=== PATIENT | male | born 1940 | race African-American/Black ===

== ENCOUNTER 2017-01-17 08:07 | Inpatient (IN) | payer MEDICARE, MEDICAID ==
[~2017-01-17] VITALS: Ht 193 cm; Wt 77.1 kg
[~2017-01-17 08:07] MED LIST: ADVAIR 250-501 EACH INH; ALBUTEROL2.5 MG/3 M INH; DALIRESP500 MCG PO; OPSUMIT10 MG PO; PROAIR HFA8.5 GM INH; SPIRIVA18 MCG INH
[2017-01-17] MEDS ORDERED: Ipratropium 0.02% Inh Soln 2.5ml UD HHN ONE (08:15)
[2017-01-17] MEDS ORDERED: Solu-MEDROL 125mg Inj IVP ONE (08:15)
[2017-01-17 08:20] VITALS: BP 146/80
[2017-01-17] MEDS ORDERED: LEVOFLOXACIN500 MG ORAL (08:21)
[2017-01-17] MEDS ORDERED: PREDNISONE10 MG ORAL (08:21)
[2017-01-17] MEDS ORDERED: INCRUSE ELLI62.5 MCG IH (08:21)
[2017-01-17] MEDS ORDERED: OPSUMIT10 MG PO (08:21)
--- NOTE | 2017-01-17 08:21 | Emergency Room Report ---
History of Present Illness General Chief Complaint: Dyspnea/Respdistress Source: Patient, Medical Record Present Illness HPI Patient presents with cough and shortness of breath. He states is been worsening over the last few days. When he coughs he gets very hot and flushed a. He has a nebulizer at home. He thinks he is taking prednisone but is not sure. He is on home oxygen. The last time he was admitted was a year and half ago. He gets extremely winded with minimal exertion at this time. He states he does not have chest pain but feels pressure in his chest. He states the phlegm has been clear. He denies nausea, vomiting, diarrhea, dysuria, joint pain. Allergies: Coded Allergies: No Known Allergies (Unverified , 08/26/13) Patient History Past Medical History: see triage record Social History: Reports: smoking - prior Social History Narrative at home Reviewed Nursing Documentation: PMH: Agreed, PSxH: Agreed Nursing Documentation-PMH Past Medical History: No History, Except For Hx Cardiac Problems: Yes Hx Hypertension: Yes Hx Asthma: Yes Hx COPD: Yes Hx Diabetes: No Hx Cancer: No Hx Gastrointestinal Problems: No Hx Neurological Problems: No Review of Systems All Other Systems: negative except mentioned in HPI Physical Exam Vital Signs Date Time Temp Pulse Resp B/P Pulse Ox O2 Delivery O2 Flow Rate FiO2 01/17/17 08:13 97.9 97 20 166/88 94 Nasal Cannula 2.0 Sp02 EP Interpretation: reviewed, abnormal - low on O2 as interpreted by me General Appearance: well appearing, no apparent distress, GCS 15 Head: normocephalic Eyes: bilateral eye PERRL, bilateral eye other - arcus ENT: moist mucus membranes Neck: supple Respiratory: decreased breath sounds, accessory muscle use, wheezing, expiration, inspiration Cardiovascular #1: regular rate, rhythm Cardiovascular #2: 2+ radial (R) Gastrointestinal: normal inspection, normal bowel sounds, non tender, no mass, non-distended, scaphoid Musculoskeletal: back normal, gait/station normal, normal range of motion Neurologic: alert, oriented x3, grossly normal Psychiatric: mood/affect normal Skin: normal inspection, warm/dry Medical Decision Making Diagnostic Impression: Primary Impression: COPD exacerbation Additional Impression: Lactic acid acidosis ER Course The patient presents with dyspnea with history of COPD on home oxygen. Differential includes exacerbation of COPD, pneumonia, bronchitis or pneumothorax possibly cardiac origin. Evaluation will be with EKG, chest x-ray and labs. The patient will be treated with IV Solu-Medrol and breathing treatments. The patient is significantly dyspneic at this time and most likely will need to be hospitalized. He has very little reserve. Due to normal WBC, antibiotics not started (initially). Increased infiltrate ( chronic changes RUL). Due to rising lactic acid, antibiotics begun. Patient improved. Admit med Dr. Berrios. Laboratory Tests Test 01/17/17 08:15 01/17/17 13:30 01/17/17 16:02 White Blood Count 4.7 K/UL (4.8-10.8) L Red Blood Count 4.76 M/UL (4.70-6.10) Hemoglobin 14.1 G/DL (14.2-18.0) L Hematocrit 44.6 % (42.0-52.0) Mean Corpuscular Volume 94 FL (80-99) Mean Corpuscular Hemoglobin 29.6 PG (27.0-31.0) Mean Corpuscular Hemoglobin Concent 31.7 G/DL (32.0-36.0) L Red Cell Distribution Width 14.3 % (11.6-14.8) Platelet Count 216 K/UL (150-450) Mean Platelet Volume 5.6 FL (6.5-10.1) L Neutrophils (%) (Auto) 71.3 % (45.0-75.0) Lymphocytes (%) (Auto) 16.8 % (20.0-45.0) L Monocytes (%) (Auto) 11.6 % (1.0-10.0) H Eosinophils (%) (Auto) 0.0 % (0.0-3.0) Basophils (%) (Auto) 0.2 % (0.0-2.0) Prothrombin Time 10.3 SEC (9.30-11.50) Prothrombin Time INR 1.0 (0.9-1.1) PTT 27 SEC (23-33) Sodium Level 140 mEQ/L (135-145) Potassium Level 3.9 mEQ/L (3.4-4.9) Chloride Level 94 mEQ/L (98-107) L Carbon Dioxide Level 39 mEQ/L (20-30) H Anion Gap 7 (5-15) Blood Urea Nitrogen 11 mg/dL (7-23) Creatinine 1.0 mg/dL (0.7-1.2) Estimate Glomerular Filtration Rate mL/min (>60) Glucose Level 109 mg/dL (74-106) H Lactic Acid Level 2.60 mmol/L (0.66-2.22) H 4.60 mmol/L (0.66-2.22) H Calcium Level 10.2 mg/dL (8.6-10.2) Total Bilirubin 0.3 mg/dL (0.0-1.2) Aspartate Amino Transferase (AST) 24 U/L (5-40) Alanine Aminotransferase (ALT) 16 U/L (3-41) Alkaline Phosphatase 55 U/L (40-129) Total Creatine Kinase 175 U/L (38-174) H Troponin I < 0.30 ng/mL (<=0.30) Pro-B-Type Natriuretic Peptide 139 pg/mL (0-450) Total Protein 8.0 g/dL (6.6-8.7) Albumin 4.5 g/dL (3.5-5.2) Globulin 3.5 g/dL Albumin/Globulin Ratio 1.2 (1.0-2.7) Arterial Blood pH 7.362 (7.350-7.450) Arterial Blood Partial Pressure CO2 52.9 mmHg (35.0-45.0) H Arterial Blood Partial Pressure O2 86.9 mmHg (75.0-100.0) Arterial Blood HCO3 29.3 mmol/L (22.0-26.0) H Arterial Blood Oxygen Saturation 95.9 % (92.0-98.0) Arterial Blood Base Excess 2.9 Gilbert Test Positive EKG Diagnostic Results Rate: normal Rhythm: NSR ST Segments: no acute changes - P pulmonale Rhythm Strip Diag. Results EP Interpretation: yes Rhythm: NSR, no PVC's, no ectopy Chest X-Ray Diagnostic Results Chest X-Ray Diagnostic Results : Chest X-Ray Ordered: Yes # of Views/Limited/Complete: 1 View Indication: Shortness of Breath EP Interpretation: Yes Interpretation: no pneumothorax, other - COPD, bullae, scarring and consolidation R upper lung Last Vital Signs Date Time Temp Pulse Resp B/P Pulse Ox O2 Delivery O2 Flow Rate FiO2 01/17/17 19:40 96 20 96 Nasal Cannula 2.0 28 01/17/17 17:15 98.1 154/77 Status: improved Disposition: ADMITTED INPATIENT Condition: Serious Pedro Resendiz M.D. Jan 17, 2017 08:21
[2017-01-17] MEDS: Albuterol ud Inhalation HHN SCH ×5 (08:27→20:42)
[2017-01-17 08:39] LABS: BASOPHILS % (AUTO) 0.2 % (0.0-2.0); LYMPHOCYTES % (AUTO) 16.8 % (20.0-45.0); MEAN CORPUSCULAR HEMOGLOBIN 29.6 PG (27.0-31.0); MEAN CORPUSCULAR HGB CONC 31.7 G/DL (32.0-36.0); MEAN CORPUSCULAR VOLUME 94 FL (80-99); MEAN PLATELET VOLUME 5.6 FL (6.5-10.1); MONOCYTES % (AUTO) 11.6 % (1.0-10.0); NEUTROPHILS % (AUTO) 71.3 % (45.0-75.0); PLATELET COUNT 216 K/UL (150-450); RED BLOOD COUNT 4.76 M/UL (4.70-6.10); RED CELL DISTRIBUTION WIDTH 14.3 % (11.6-14.8); WHITE BLOOD COUNT 4.7 K/UL (4.8-10.8)
[2017-01-17 08:56] LABS: PROTHROMBIN TIME 10.3 SEC (9.30-11.50)
[2017-01-17 08:57] LABS: ALANINE AMINOTRANSFERASE 16 U/L (3-41); ALBUMIN/GLOBULIN RATIO 1.2 (1.0-2.7); ANION GAP 7 (5-15); ASPARTATE AMINO TRANSFERASE 24 U/L (5-40); CALCIUM 10.2 mg/dL (8.6-10.2); CARBON DIOXIDE 39 mEQ/L (20-30); CHLORIDE 94 mEQ/L (98-107); HEMOLYSIS 2; POTASSIUM 3.9 mEQ/L (3.4-4.9); SODIUM 140 mEQ/L (135-145); TROPONIN I < 0.30 ng/mL (<=0.30)
[2017-01-17 09:01] LABS: REFLEX LACTIC ACID YES OR NO YES
[2017-01-17 10:00] VITALS: BP 126/74
[2017-01-17 12:00] VITALS: BP 122/59
--- NOTE | 2017-01-17 12:31 | Diagnostic Imaging Report ---
Indication: COUGH/shortness of breath Technique: One view of the chest Comparison: 08/28/2015 Findings: Calcific scarring, volume loss, and bullous change are again demonstrated in the right lung apex. The lungs remain hyperinflated. No acute infiltrates, effusions, or congestion. Granulomatous hilar node calcifications are seen in the right lung apex. The heart size is normal. Aorta is tortuous. Impression: COPD changes, chronic right apical pleural and parenchymal scarring, as described, unchanged from 08/28/2015. No acute process
[2017-01-17 13:56] VITALS: BP 100/65
[2017-01-17] MEDS ORDERED: Zosyn 3.375gm inj ONE (14:08)
[2017-01-17] MEDS ORDERED: Piperacillin/Tazobactam 3.375 GM in NS 110 ML IVPB ONE (14:15)
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
[2017-01-17 16:00] VITALS: BP 118/72
[2017-01-17 16:32] LABS: ABG PCO2 52.9 mmHg (35.0-45.0)
[2017-01-17 16:33] LABS: ABG ALLEN TEST POSITIVE; ABG BASE EXCESS 2.9
[2017-01-17 17:15] VITALS: BP 154/77
[2017-01-17] MEDS: cefTRIAXone 1 GM in D5W 55 ML IV SCH (18:52)
[2017-01-17] MEDS ORDERED: Milk of Magnesia 30ml Ud ORAL PRN (21:00)
[2017-01-17] MEDS: Heparin 5000 units/ml inj SUBQ SCH (21:17)
[2017-01-17] MEDS ORDERED: cefTRIAXone 1 GM in D5W 55 ML IVPB ONE (22:00)
[2017-01-18] VITALS (8 sets, daily range): BP systolic 140–164; BP diastolic 80–94
[2017-01-18] MEDS: Albuterol ud Inhalation HHN SCH ×7 (00:24→22:41)
[2017-01-18] MEDS: Advair 250/50 Inhaler - 14 dose INH SCH ×3 (00:26→22:59)
[2017-01-18] MEDS: Solu-MEDROL 125mg Inj IVP SCH ×5 (01:29→23:57)
--- NOTE | 2017-01-18 07:56 | Pulmonology Progress Note ---
Assessment/Plan Assessment/Plan Assessment Pulmonary congestion COPD with acute exacerbation Respiratory insufficiency shortness of breath Pulmonary hypertension Hypoxemia Plan IV steroids as is IV antibiotics as is IV hydration respiratory care monitor ABG for CO2 retention supportive care maintain home meds oxygen therapy prognosis guarded Subjective Allergies: Coded Allergies: No Known Allergies (Unverified , 08/26/13) Subjective slightly better care noted NAD Objective Last 24 Hour Vital Signs Date Time Temp Pulse Resp B/P Pulse Ox O2 Delivery O2 Flow Rate FiO2 01/18/17 07:28 84 16 99 Nasal Cannula 2.0 01/18/17 07:17 99 Nasal Cannula 2.0 01/18/17 07:17 Nasal Cannula 2.0 01/18/17 07:17 82 15 99 Nasal Cannula 2.0 01/18/17 07:17 82 15 Nasal Cannula 2.0 01/18/17 04:15 97.8 87 20 142/87 97 Nasal Cannula 2.0 01/18/17 04:00 80 01/18/17 04:00 97.6 87 20 142/87 97 Nasal Cannula 2.0 01/18/17 03:45 94 20 96 Nasal Cannula 2.0 01/18/17 03:30 91 20 93 Nasal Cannula 2.0 01/18/17 00:00 97.2 78 20 145/92 94 Nasal Cannula 2.0 01/18/17 00:00 80 01/17/17 23:30 90 20 95 Nasal Cannula 2.0 01/17/17 23:30 95 20 97 Nasal Cannula 2.0 01/17/17 20:00 91 01/17/17 19:40 96 20 96 Nasal Cannula 2.0 01/17/17 19:30 Nasal Cannula 2.0 01/17/17 19:30 92 20 94 Nasal Cannula 2.0 01/17/17 19:30 92 20 Nasal Cannula 2.0 01/17/17 19:30 94 Nasal Cannula 2.0 01/17/17 17:43 90 18 100 Nasal Cannula 2.0 01/17/17 17:33 95 18 100 Nasal Cannula 2.0 01/17/17 17:15 98.1 90 20 154/77 92 Nasal Cannula 2.0 01/17/17 16:47 97.9 80 20 118/72 100 Nasal Cannula 2.0 82 01/17/17 16:00 80 20 118/72 100 Nasal Cannula 2.0 82 01/17/17 13:56 80 22 100/65 100 Nasal Cannula 2.0 80 01/17/17 12:00 84 20 122/59 100 Nasal Cannula 2.0 01/17/17 10:00 91 18 126/74 96 Nasal Cannula 2.0 01/17/17 09:20 93 14 100 Nasal Cannula 2.0 01/17/17 09:02 93 17 95 Nasal Cannula 2.0 01/17/17 08:27 93 21 95 Nasal Cannula 2.0 01/17/17 08:20 93 24 146/80 94 Nasal Cannula 2.0 01/17/17 08:13 97.9 97 20 166/88 94 Nasal Cannula 2.0 01/17/17 08:10 93 26 Nasal Cannula 2.0 Intake and Output 01/17/17 01/18/17 19:00 07:00 Intake Total 1810 ml 1100 ml Balance 1810 ml 1100 ml Intake Oral 0 ml IV Total 1810 ml 1100 ml # Voids 1 Objective WDWN NAD reduced breath sounds bilaterally without rhonchi or wheeze [id number] without MRG NABS nontender no HSM no CCE nonfocal Laboratory Tests 01/17/17 08:15: White Blood Count 4.7L, Red Blood Count 4.76, Hemoglobin 14.1L, Hematocrit 44.6 , Mean Corpuscular Volume 94, Mean Corpuscular Hemoglobin 29.6, Mean Corpuscular Hemoglobin Concent 31.7L, Red Cell Distribution Width 14.3, Platelet Count 216, Mean Platelet Volume 5.6L, Neutrophils (%) (Auto) 71.3, Lymphocytes (%) (Auto) 16.8L, Monocytes (%) (Auto) 11.6H, Eosinophils (%) (Auto ) 0.0, Basophils (%) (Auto) 0.2, Prothrombin Time 10.3, Prothromb Time International Ratio 1.0, Activated Partial Thromboplast Time 27, Sodium Level 140, Potassium Level 3.9, Chloride Level 94L, Carbon Dioxide Level 39H, Anion Gap 7, Blood Urea Nitrogen 11, Creatinine 1.0, Estimat Glomerular Filtration Rate , Glucose Level 109H, Lactic Acid Level 2.60H, Calcium Level 10.2, Total Bilirubin 0.3, Aspartate Amino Transf (AST/SGOT) 24, Alanine Aminotransferase ( ALT/SGPT) 16, Alkaline Phosphatase 55, Total Creatine Kinase 175H, Troponin I < 0.30, Pro-B-Type Natriuretic Peptide 139, Total Protein 8.0, Albumin 4.5, Globulin 3.5, Albumin/Globulin Ratio 1.2 01/17/17 13:30: Lactic Acid Level 4.60H 01/17/17 16:02: Arterial Blood pH 7.362, Arterial Blood Partial Pressure CO2 52.9H, Arterial Blood Partial Pressure O2 86.9, Arterial Blood HCO3 29.3H, Arterial Blood Oxygen Saturation 95.9, Arterial Blood Base Excess 2.9, Gilbert Test Positive Current Medications Medications (Trade) Dose Ordered Sig/Viji Route PRN Reason Start Time Stop Time Status Last Admin Dose Admin Acetaminophen (Tylenol) 650 mg Q4H PRN ORAL T>100.5 01/17/17 16:15 02/16/17 16:14 Albuterol Sulfate 2.5 mg 2.5 mg Q4HRT HHN 01/17/17 19:00 01/22/17 18:59 01/18/17 07:17 Ceftriaxone Sodium/Dextrose (Rocephin/D5W) 55 ml @ 110 mls/hr Q24H IV 01/17/17 18:00 01/24/17 17:59 01/17/17 18:52 Heparin Sodium (Porcine) (Heparin 5000 units/ml) 5,000 units EVERY 12 HOURS SUBQ 01/17/17 21:00 02/16/17 20:59 01/17/17 21:17 Levofloxacin (Levaquin) 500 mg Q24H ORAL 01/18/17 15:00 01/25/17 14:59 Magnesium Hydroxide (Mom) 30 ml HSPRN PRN ORAL Constipation 01/17/17 21:00 02/16/17 20:59 Methylprednisolone Sodium Succinate 60 mg 60 mg EVERY 6 HOURS IVP 01/18/17 00:00 02/17/17 00:00 01/18/17 05:02 Pantoprazole (Protonix) 40 mg DAILY ORAL 01/18/17 09:00 02/17/17 08:59 Salmeterol Xinafoate/ Fluticasone (Advair 250/50 Diskus) 1 puffs EVERY 12 HOURS INH 01/17/17 21:00 02/16/17 20:59 01/18/17 00:26 Sodium Chloride (Sodium Chloride 1000ml bag) 1,000 ml @ 100 mls/hr Q10H IV 01/17/17 20:45 02/16/17 20:44 01/18/17 05:02 Tiotropium [place] (Spiriva Inhaler) 1 puff DAILY INH 01/18/17 09:00 02/17/17 08:59 JORDYN MCARTHUR Jan 18, 2017 07:56
[2017-01-18] MEDS: Heparin 5000 units/ml inj SUBQ SCH ×2 (09:18→20:25)
--- NOTE | 2017-01-18 10:46 | History and Physical Report ---
DATE OF ADMISSION: 01/17/2017 CHIEF COMPLAINT: COPD exacerbation. HISTORY OF PRESENT ILLNESS: The patient is a very pleasant 76-year-old male well known to me, has prior history of COPD and respiratory insufficiency presented with complaints of one week progressive shortness of breath. According to the patient, he was well until a week prior to admission when he developed progressive shortness of breath, cough, and congestion. He used his inhalers as well as his oxygen, but medications at home. He had continued worsening shortness of breath and difficulty breathing. He has now been directly admitted for further evaluation and care. He denies any medication noncompliance. He has had no fevers or chills. Denies any chest pain. PAST MEDICAL HISTORY: As above. PAST SURGICAL HISTORY: None. CURRENT MEDICATIONS: Reconciled and reviewed. ALLERGIES: None. FAMILY HISTORY: None. SOCIAL HISTORY: Negative for tobacco, ethanol, or drugs. REVIEW OF SYSTEMS: General: No fever or chills. HEENT: No headaches or visual changes. Cardiopulmonary: No chest pain. Positive for shortness of breath. Gastrointestinal: No nausea or vomiting. Genitourinary: No urgency or frequency. Musculoskeletal: No joint pain or swelling. Neurologic: No evidence of seizures. PHYSICAL EXAMINATION: VITAL SIGNS: Temperature 97.2, pulse 78, respirations 20, and blood pressure 145/92. GENERAL: The patient is a well-developed male, in no apparent distress. HEART: Regular rate and rhythm. LUNGS: Diminished breath sounds. Scattered wheezes. ABDOMEN: Soft, nontender, and nondistended. EXTREMITIES: Without clubbing, cyanosis, or edema. LABORATORY DATA: White count was 5, hemoglobin 14, hematocrit 44, and platelets of 216,000. Sodium 140 and potassium 3.9. Lactic acid was 4.6. Coagulations were normal. Chest x-ray shows chronic COPD changes but no infiltrates. ASSESSMENT: This is an unfortunate elderly male with complaints of: 1. Chronic obstructive pulmonary disease exacerbation. 2. Respiratory insufficiency. 3. Bronchitis. PLAN: Continue antibiotic therapy. Respiratory treatments [id number]. Intravenous steroids, DVT, and stress ulcer prophylaxis. Pulmonary consultation has been obtained. Robert Durham M.D. DR: PEDRO JOB#: [id number] CC:
[2017-01-18] MEDS: Levofloxacin 500mg tab ORAL SCH (16:13)
[2017-01-18] MEDS: cefTRIAXone 1 GM in D5W 55 ML IV SCH (18:18)
[2017-01-19] MEDS: Albuterol ud Inhalation HHN SCH ×6 (03:24→23:46)
[2017-01-19 03:48] VITALS: BP 146/80
[2017-01-19] MEDS: Solu-MEDROL 125mg Inj IVP SCH ×4 (05:33→23:45)
[2017-01-19 07:57] VITALS: BP_SYST 109; BP_SYST 142; BP_DIAS 66; BP_DIAS 78
[2017-01-19] MEDS: Advair 250/50 Inhaler - 14 dose INH SCH ×2 (08:43→21:47)
[2017-01-19] MEDS: Heparin 5000 units/ml inj SUBQ SCH ×2 (08:44→21:05)
--- NOTE | 2017-01-19 09:02 | General Progress Note ---
Assessment/Plan Problem List: (1) Hypercapnia (2) Respiratory distress (3) Hypoxia ICD Codes: R09.02 - Hypoxia SNOMED: 321632676 (4) COPD exacerbation ICD Codes: J44.1 - Obstructive chronic bronchitis with exacerbation SNOMED: 535296524 (5) Lactic acid acidosis ICD Codes: E87.2 - Acidosis SNOMED: 64692782 Status: stable, progressing Assessment/Plan add mucinex steroids resp rx iv abx repeat lactic acid level dvt/stress ulcer prophylaxis Subjective ROS Limited/Unobtainable: No Constitutional: Reports: malaise, weakness HEENT: Reports: no symptoms Cardiovascular: Reports: no symptoms Respiratory: Reports: cough, shortness of breath, sputum Gastrointestinal/Abdominal: Reports: no symptoms Genitourinary: Reports: no symptoms Neurologic/Psychiatric: Reports: no symptoms Endocrine: Reports: no symptoms Hematologic/Lymphatic: Reports: no symptoms Allergies: Coded Allergies: No Known Allergies (Unverified , 08/26/13) All Systems: reviewed and negative except above Subjective still sob. has more congestion, cough and phlegm today. remains on iv steroids and iv abx. no fever or chills. no chest pain. Objective Last 24 Hour Vital Signs Date Time Temp Pulse Resp B/P Pulse Ox O2 Delivery O2 Flow Rate FiO2 01/19/17 07:57 95.3 84 20 142/78 100 Nasal Cannula 2.0 01/19/17 07:21 80 18 100 Nasal Cannula 2.0 01/19/17 07:19 84 21 99 Nasal Cannula 2.0 01/19/17 07:19 84 Nasal Cannula 2.0 01/19/17 07:19 Nasal Cannula 2.0 01/19/17 04:00 78 01/19/17 03:48 98.4 74 20 146/80 97 Nasal Cannula 2.0 01/19/17 03:34 75 18 97 Nasal Cannula 2.0 01/19/17 03:26 79 20 96 Nasal Cannula 2.0 01/19/17 00:00 82 01/18/17 23:48 97.3 86 21 157/80 96 Room Air 01/18/17 22:53 80 18 98 Nasal Cannula 2.0 28 01/18/17 22:43 78 20 98 Nasal Cannula 2.0 01/18/17 20:00 95 01/18/17 19:59 90 18 97 Nasal Cannula 2.0 28 01/18/17 19:49 98.3 89 20 164/94 94 Nasal Cannula 2.0 01/18/17 19:41 81 20 96 Nasal Cannula 2.0 28 01/18/17 19:40 Nasal Cannula 2.0 01/18/17 19:40 96 Nasal Cannula 2.0 28 01/18/17 16:10 97.0 75 20 145/85 99 Nasal Cannula 2.0 01/18/17 16:10 75 01/18/17 15:48 83 16 99 Nasal Cannula 2.0 01/18/17 15:37 75 19 99 Nasal Cannula 2.0 01/18/17 12:00 75 01/18/17 12:00 96.5 75 20 147/84 99 Nasal Cannula 2.0 01/18/17 11:42 86 16 99 Nasal Cannula 2.0 01/18/17 11:31 80 16 99 Nasal Cannula 2.0 Intake and Output 01/18/17 01/19/17 19:00 07:00 Intake Total 1000 ml 1045 ml Output Total 450 ml Balance 1000 ml 595 ml Intake Oral 100 ml IV Total 1000 ml 945 ml Output Urine Total 450 ml # Voids 2 Height (Feet): 6 Height (Inches): 4.00 Weight (Pounds): 170 General Appearance: WD/WN, alert Neck: supple Cardiovascular: normal rate, regular rhythm Respiratory/Chest: rhonchi - bilaterally, expiratory wheezing Abdomen: normal bowel sounds, non tender, soft, no organomegaly Edema: no edema noted Arm (L), no edema noted Arm (R), no edema noted Leg (L), no edema noted Leg (R), no edema noted Pedal (L), no edema noted Pedal (R), no edema noted Generalized Neurologic: handy man II-XII grossly normal, no motor/sensory deficits, alert, oriented x 3, responsive, normal mood/affect Skin: normal pigmentation GRANT HERANNDEZ Jan 19, 2017 09:02
--- NOTE | 2017-01-19 09:09 | Pulmonology Progress Note ---
Assessment/Plan Assessment/Plan Assessment Pulmonary congestion COPD with acute exacerbation Respiratory insufficiency shortness of breath Pulmonary hypertension Hypoxemia Plan IV steroids as is as patient still with MURPHY IV antibiotics as is- monitor cultures IV hydration respiratory care monitor ABG PRN supportive care maintain home meds oxygen therapy prognosis guarded hope to dc in 1-2 days Subjective Allergies: Coded Allergies: No Known Allergies (Unverified , 08/26/13) Subjective still with sob care noted NAD Objective Last 24 Hour Vital Signs Date Time Temp Pulse Resp B/P Pulse Ox O2 Delivery O2 Flow Rate FiO2 01/19/17 07:57 95.3 84 20 142/78 100 Nasal Cannula 2.0 01/19/17 07:21 80 18 100 Nasal Cannula 2.0 28 01/19/17 07:19 84 21 99 Nasal Cannula 2.0 01/19/17 07:19 84 Nasal Cannula 2.0 01/19/17 07:19 Nasal Cannula 2.0 01/19/17 04:00 78 01/19/17 03:48 98.4 74 20 146/80 97 Nasal Cannula 2.0 01/19/17 03:34 75 18 97 Nasal Cannula 2.0 01/19/17 03:26 79 20 96 Nasal Cannula 2.0 01/19/17 00:00 82 01/18/17 23:48 97.3 86 21 157/80 96 Room Air 01/18/17 22:53 80 18 98 Nasal Cannula 2.0 01/18/17 22:43 78 20 98 Nasal Cannula 2.0 01/18/17 20:00 95 01/18/17 19:59 90 18 97 Nasal Cannula 2.0 01/18/17 19:49 98.3 89 20 164/94 94 Nasal Cannula 2.0 01/18/17 19:41 81 20 96 Nasal Cannula 2.0 01/18/17 19:40 Nasal Cannula 2.0 01/18/17 19:40 96 Nasal Cannula 2.0 01/18/17 16:10 97.0 75 20 145/85 99 Nasal Cannula 2.0 01/18/17 16:10 75 01/18/17 15:48 83 16 99 Nasal Cannula 2.0 01/18/17 15:37 75 19 99 Nasal Cannula 2.0 01/18/17 12:00 75 01/18/17 12:00 96.5 75 20 147/84 99 Nasal Cannula 2.0 01/18/17 11:42 86 16 99 Nasal Cannula 2.0 01/18/17 11:31 80 16 99 Nasal Cannula 2.0 Intake and Output 01/18/17 01/19/17 19:00 07:00 Intake Total 1000 ml 1045 ml Output Total 450 ml Balance 1000 ml 595 ml Intake Oral 100 ml IV Total 1000 ml 945 ml Output Urine Total 450 ml # Voids 2 Objective WDWN NAD reduced breath sounds bilaterally without rhonchi or wheeze [id number] without MRG NABS nontender no HSM no CCE nonfocal Microbiology Date/Time Source Procedure Growth Status 01/17/17 08:25 Blood Blood Culture - Preliminary Staphylococcus Sp Coag Neg Resulted 01/17/17 08:15 Blood Blood Culture - Preliminary NO GROWTH AFTER 24 HOURS Resulted Current Medications Medications (Trade) Dose Ordered Sig/Viji Route PRN Reason Start Time Stop Time Status Last Admin Dose Admin Acetaminophen (Tylenol) 650 mg Q4H PRN ORAL T>100.5 01/17/17 16:15 02/16/17 16:14 Albuterol Sulfate 2.5 mg 2.5 mg Q4HRT HHN 01/17/17 19:00 01/22/17 18:59 01/19/17 07:17 Ceftriaxone Sodium/Dextrose (Rocephin/D5W) 55 ml @ 110 mls/hr Q24H IV 01/17/17 18:00 01/24/17 17:59 01/18/17 18:18 Heparin Sodium (Porcine) (Heparin 5000 units/ml) 5,000 units EVERY 12 HOURS SUBQ 01/17/17 21:00 02/16/17 20:59 01/19/17 08:44 Levofloxacin (Levaquin) 500 mg Q24H ORAL 01/18/17 15:00 01/25/17 14:59 01/18/17 16:13 Magnesium Hydroxide (Mom) 30 ml HSPRN PRN ORAL Constipation 01/17/17 21:00 02/16/17 20:59 Methylprednisolone Sodium Succinate 60 mg 60 mg EVERY 6 HOURS IVP 01/18/17 00:00 02/17/17 00:00 01/19/17 05:33 Pantoprazole (Protonix) 40 mg DAILY ORAL 01/18/17 09:00 02/17/17 08:59 01/19/17 08:43 Salmeterol Xinafoate/ Fluticasone (Advair 250/50 Diskus) 1 puffs EVERY 12 HOURS INH 01/17/17 21:00 02/16/17 20:59 01/19/17 08:43 Sodium Chloride (Sodium Chloride 1000ml bag) 1,000 ml @ 100 mls/hr Q10H IV 01/17/17 20:45 02/16/17 20:44 01/19/17 01:36 Tiotropium [place] (Spiriva Inhaler) 1 puff DAILY INH 01/18/17 09:00 02/17/17 08:59 01/19/17 08:43 JORDYN MCARTHUR Jan 19, 2017 09:09
[2017-01-19 11:21] VITALS: BP 117/57
[2017-01-19] MEDS: Levofloxacin 500mg tab ORAL SCH (14:20)
[2017-01-19 15:14] VITALS: BP 126/71
[2017-01-19] MEDS: cefTRIAXone 1 GM in D5W 55 ML IV SCH (17:50)
[2017-01-19 19:51] VITALS: BP 104/58
[2017-01-20] VITALS (7 sets, daily range): BP systolic 126–154; BP diastolic 71–85
[2017-01-20] MEDS: Albuterol ud Inhalation HHN SCH ×6 (04:35→22:58)
[2017-01-20] MEDS: Solu-MEDROL 125mg Inj IVP SCH ×4 (05:34→23:35)
--- NOTE | 2017-01-20 08:02 | Pulmonology Progress Note ---
Assessment/Plan Assessment/Plan Assessment Pulmonary congestion COPD with acute exacerbation Respiratory insufficiency shortness of breath Pulmonary hypertension Hypoxemia Plan IV steroids as is as patient still with MURPHY and cannot taper IV antibiotics as is- BCX ?contaminant; will call ID IV hydration respiratory care monitor acid base supportive care maintain home meds oxygen therapy prognosis guarded hope to dc in am impression, plan, and exam edited and reviewed in detail care discussed with RN Subjective Allergies: Coded Allergies: No Known Allergies (Unverified , 08/26/13) Subjective still with sob and chest tightness care noted and reviewed NAD Objective Last 24 Hour Vital Signs Date Time Temp Pulse Resp B/P Pulse Ox O2 Delivery O2 Flow Rate FiO2 01/20/17 04:00 97.2 84 20 133/71 99 Nasal Cannula 2.0 01/20/17 04:00 92 01/20/17 03:45 84 20 97 Nasal Cannula 2.0 28 01/20/17 03:30 82 20 93 Nasal Cannula 2.0 28 01/20/17 00:00 98.1 84 20 126/71 98 Nasal Cannula 2.0 01/20/17 00:00 82 01/19/17 23:47 86 20 95 Nasal Cannula 2.0 28 01/19/17 23:30 80 20 94 Nasal Cannula 2.0 28 01/19/17 20:00 82 01/19/17 19:51 98.8 89 20 104/58 97 Nasal Cannula 2.0 01/19/17 19:45 88 20 94 Nasal Cannula 2.0 28 01/19/17 19:30 Nasal Cannula 2.0 28 01/19/17 19:30 83 20 92 Nasal Cannula 2.0 28 01/19/17 19:30 92 Nasal Cannula 2.0 28 01/19/17 16:00 87 01/19/17 15:25 86 21 100 Nasal Cannula 2.0 28 01/19/17 15:14 98.1 78 20 126/71 100 Nasal Cannula 2.0 01/19/17 15:11 81 20 96 Nasal Cannula 2.0 28 01/19/17 12:00 87 01/19/17 11:21 97.3 80 20 117/57 100 Nasal Cannula 2.0 01/19/17 11:17 87 18 100 Nasal Cannula 2.0 28 01/19/17 11:03 84 20 98 Nasal Cannula 2.0 28 Intake and Output 01/19/17 01/20/17 19:00 07:00 Intake Total 1590 ml 1050 ml Output Total 1500 ml Balance 90 ml 1050 ml Intake Oral 480 ml IV Total 1110 ml 1050 ml Output Urine Total 1500 ml # Voids 4 Objective WDWN NAD reduced breath sounds bilaterally with scattered rhonchi [id number] without MRG NABS nontender no HSM no CCE nonfocal EOMI Microbiology Date/Time Source Procedure Growth Status 01/17/17 08:25 Blood Blood Culture - Final Staphylococcus Sp Coag Neg Complete 01/17/17 08:15 Blood Blood Culture - Final Staphylococcus Sp Coag Neg Complete Current Medications Medications (Trade) Dose Ordered Sig/Viji Route PRN Reason Start Time Stop Time Status Last Admin Dose Admin Acetaminophen (Tylenol) 650 mg Q4H PRN ORAL T>100.5 01/17/17 16:15 02/16/17 16:14 Albuterol Sulfate 2.5 mg 2.5 mg Q4HRT HHN 01/17/17 19:00 01/22/17 18:59 01/20/17 07:07 Ceftriaxone Sodium/Dextrose (Rocephin/D5W) 55 ml @ 110 mls/hr Q24H IV 01/17/17 18:00 01/24/17 17:59 01/19/17 17:50 Heparin Sodium (Porcine) (Heparin 5000 units/ml) 5,000 units EVERY 12 HOURS SUBQ 01/17/17 21:00 02/16/17 20:59 01/19/17 21:05 Levofloxacin (Levaquin) 500 mg Q24H ORAL 01/18/17 15:00 01/25/17 14:59 01/19/17 14:20 Magnesium Hydroxide (Mom) 30 ml HSPRN PRN ORAL Constipation 01/17/17 21:00 02/16/17 20:59 Methylprednisolone Sodium Succinate 60 mg 60 mg EVERY 6 HOURS IVP 01/18/17 00:00 02/17/17 00:00 01/20/17 05:34 Pantoprazole (Protonix) 40 mg DAILY ORAL 01/18/17 09:00 02/17/17 08:59 01/19/17 08:43 Salmeterol Xinafoate/ Fluticasone (Advair 250/50 Diskus) 1 puffs EVERY 12 HOURS INH 01/17/17 21:00 02/16/17 20:59 01/19/17 21:47 Sodium Chloride (Sodium Chloride 1000ml bag) 1,000 ml @ 100 mls/hr Q10H IV 01/17/17 20:45 02/16/17 20:44 01/19/17 22:24 Tiotropium [place] (Spiriva Inhaler) 1 puff DAILY INH 01/18/17 09:00 02/17/17 08:59 01/19/17 08:43 JORDYN MCARTHUR Jan 20, 2017 08:02
[2017-01-20] MEDS: Advair 250/50 Inhaler - 14 dose INH SCH ×2 (08:48→21:35)
[2017-01-20] MEDS: Heparin 5000 units/ml inj SUBQ SCH ×2 (09:06→20:51)
--- NOTE | 2017-01-20 14:17 | General Progress Note ---
Assessment/Plan Problem List: (1) Hypercapnia (2) Respiratory distress (3) Hypoxia ICD Codes: R09.02 - Hypoxia SNOMED: 273389607 (4) COPD exacerbation ICD Codes: J44.1 - Obstructive chronic bronchitis with exacerbation SNOMED: 585989806 (5) Lactic acid acidosis ICD Codes: E87.2 - Acidosis SNOMED: 52680664 Status: stable, progressing Assessment/Plan cont iv steroids resp rx iv abx ID eval for positive bld culture dvt/stress ulcer prophylaxis possible dc tomorrow if stable. not well enough today Subjective ROS Limited/Unobtainable: No Constitutional: Reports: malaise, weakness HEENT: Reports: no symptoms Cardiovascular: Reports: chest pain Respiratory: Reports: cough, shortness of breath, sputum Gastrointestinal/Abdominal: Reports: no symptoms Genitourinary: Reports: no symptoms Neurologic/Psychiatric: Reports: no symptoms Endocrine: Reports: no symptoms Hematologic/Lymphatic: Reports: anemia Allergies: Coded Allergies: No Known Allergies (Unverified , 08/26/13) All Systems: reviewed and negative except above Subjective still sob. has more congestion, cough and phlegm today. remains on iv steroids and iv abx. no fever or chills. no chest pain. doesnt feel any better today. Objective Last 24 Hour Vital Signs Date Time Temp Pulse Resp B/P Pulse Ox O2 Delivery O2 Flow Rate FiO2 01/20/17 12:00 85 01/20/17 12:00 97.0 81 22 130/76 100 Nasal Cannula 2.0 01/20/17 11:29 85 20 97 Nasal Cannula 3.0 32 01/20/17 11:19 70 20 92 Nasal Cannula 2.0 28 01/20/17 08:00 65 01/20/17 08:00 96.6 81 23 148/83 91 Nasal Cannula 2.0 01/20/17 07:17 84 20 97 Nasal Cannula 2.0 28 01/20/17 07:07 91 Nasal Cannula 2.0 28 01/20/17 07:07 Nasal Cannula 2.0 28 01/20/17 07:07 66 20 91 Nasal Cannula 2.0 28 01/20/17 07:07 66 18 Nasal Cannula 2.0 01/20/17 04:00 97.2 84 20 133/71 99 Nasal Cannula 2.0 01/20/17 04:00 92 01/20/17 03:45 84 20 97 Nasal Cannula 2.0 28 01/20/17 03:30 82 20 93 Nasal Cannula 2.0 28 01/20/17 00:00 98.1 84 20 126/71 98 Nasal Cannula 2.0 01/20/17 00:00 82 01/19/17 23:47 86 20 95 Nasal Cannula 2.0 28 01/19/17 23:30 80 20 94 Nasal Cannula 2.0 28 01/19/17 20:00 82 01/19/17 19:51 98.8 89 20 104/58 97 Nasal Cannula 2.0 01/19/17 19:45 88 20 94 Nasal Cannula 2.0 28 01/19/17 19:30 Nasal Cannula 2.0 28 01/19/17 19:30 83 20 92 Nasal Cannula 2.0 28 01/19/17 19:30 92 Nasal Cannula 2.0 28 01/19/17 16:00 87 01/19/17 15:25 86 21 100 Nasal Cannula 2.0 01/19/17 15:14 98.1 78 20 126/71 100 Nasal Cannula 2.0 01/19/17 15:11 81 20 96 Nasal Cannula 2.0 28 Intake and Output 01/19/17 01/20/17 19:00 07:00 Intake Total 1590 ml 1050 ml Output Total 1500 ml Balance 90 ml 1050 ml Intake Oral 480 ml IV Total 1110 ml 1050 ml Output Urine Total 1500 ml # Voids 4 Height (Feet): 6 Height (Inches): 4.00 Weight (Pounds): 170 Objective General Appearance: WD/WN, alert Neck: supple Cardiovascular: normal rate, regular rhythm Respiratory/Chest: rhonchi - bilaterally, expiratory wheezing Abdomen: normal bowel sounds, non tender, soft, no organomegaly Edema: no edema noted Arm (L), no edema noted Arm (R), no edema noted Leg (L), no edema noted Leg (R), no edema noted Pedal (L), no edema noted Pedal (R), no edema noted 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
[2017-01-20] MEDS: Levofloxacin 500mg tab ORAL SCH (15:08)
[2017-01-20] MEDS: cefTRIAXone 1 GM in D5W 55 ML IV SCH (17:47)
--- NOTE | 2017-01-20 18:15 | Consultation ---
DATE OF CONSULTATION: 01/20/2017 INFECTIOUS DISEASE CONSULT PRIMARY ATTENDING PHYSICIAN: Kenneth Berrios M.D. REASON FOR CONSULT: COPD exacerbation. HISTORY OF PRESENT ILLNESS: The patient is a 76-year-old male admitted on 01/17/2017 because of shortness of breath, cough, and congestion for at least one week. The patient had a recent travel to [place] in [place]. He had also lactic acidosis. PAST MEDICAL HISTORY: Significant for COPD and hypertension. MEDICATIONS: Levaquin, Spiriva inhaler, Protonix, Advair Diskus, heparin, milk of magnesia, albuterol, ceftriaxone, and Tylenol. SOCIAL HISTORY: , has grown up children. He was a smoker for 52 years, quit more than 10 years ago. REVIEW OF SYSTEMS: No fever. No chills. Has productive cough with whitish sputum. He had some kind of wheezing that clears with coughing. No nausea. No vomiting. No problem passing urine. PHYSICAL EXAMINATION: VITAL SIGNS: The patient is afebrile. Temperature is 96.6 degrees, pulse 85, and blood pressure 148/83. HEAD AND NECK: He is getting O2 by nasal cannula. He has pink conjunctivae. HEART: Regular. LUNGS: Decreased expansion and sounds bilaterally. ABDOMEN: Soft. EXTREMITIES: There is no edema. NEUROLOGIC: Alert, awake oriented. LABORATORY DATA: WBC is 4.7, hemoglobin 14.1, hematocrit 44.6, and platelets is 216,000. Lactic acid is 4.6. Sodium 140, potassium 3.9, chloride 94, and bicarbonate 39. The patient has a blood gas that showed pCO2 of 50.9, pO2 86.9, bicarbonate 29.3, and O2 saturation 95.9. Blood culture x2 grew coagulase negative staph. IMPRESSION: 1. Chronic obstructive pulmonary disease exacerbation. 2. Hypercapnic respiratory failure. 3. Hypertension. RECOMMENDATIONS: 1. We will continue Levaquin and Rocephin along with bronchodilator and steroids. 2. We will follow up with clinical course. At the end of my exam, I thank Dr. Berrios, for involving me in the care of this patient. Noam Allen M.D. DR: EDILBERTO JOB#: [id number] CC: JOEY
[2017-01-21] MEDS: Albuterol ud Inhalation HHN SCH ×3 (03:12→11:00)
[2017-01-21 04:00] VITALS: BP 144/90
[2017-01-21] MEDS: Solu-MEDROL 125mg Inj IVP SCH ×2 (06:20→13:17)
--- NOTE | 2017-01-21 08:53 | Pulmonology Progress Note ---
Assessment/Plan Assessment/Plan Assessment Pulmonary congestion COPD with acute exacerbation Respiratory insufficiency shortness of breath Pulmonary hypertension Hypoxemia Plan IV steroids- taper and discharge IV antibiotics to dc on discharge BCX ?contaminant; ID to clear IV hydration- may dc respiratory care monitor acid base supportive care maintain home meds oxygen therapy prognosis guarded hope to dc today pending ID clearance impression, plan, and exam edited and reviewed in detail care discussed with RN Subjective Allergies: Coded Allergies: No Known Allergies (Unverified , 08/26/13) Subjective improved sob and chest tightness care noted and reviewed NAD Objective Last 24 Hour Vital Signs Date Time Temp Pulse Resp B/P Pulse Ox O2 Delivery O2 Flow Rate FiO2 01/21/17 04:00 97.2 89 23 144/90 94 Nasal Cannula 2.0 01/21/17 04:00 79 01/21/17 03:20 74 18 99 Nasal Cannula 2.0 28 01/21/17 03:12 70 18 98 Nasal Cannula 2.0 28 01/21/17 00:00 86 01/20/17 23:43 98.1 81 20 137/71 Nasal Cannula 3.0 01/20/17 23:07 87 18 98 Nasal Cannula 2.0 28 01/20/17 22:58 85 20 97 Nasal Cannula 2.0 28 01/20/17 20:00 98.2 88 21 154/84 Nasal Cannula 2.0 01/20/17 20:00 89 01/20/17 19:24 88 20 98 Nasal Cannula 2.0 28 01/20/17 19:16 95 Nasal Cannula 3.0 32 01/20/17 19:16 Nasal Cannula 3.0 32 01/20/17 19:16 86 20 95 Nasal Cannula 3.0 32 01/20/17 16:00 98.1 96 21 150/85 100 Nasal Cannula 3.0 01/20/17 16:00 104 01/20/17 15:09 87 20 97 Nasal Cannula 3.0 32 01/20/17 14:59 72 20 92 Nasal Cannula 2.0 28 01/20/17 12:00 85 01/20/17 12:00 97.0 81 22 130/76 100 Nasal Cannula 2.0 01/20/17 11:29 85 20 97 Nasal Cannula 3.0 32 01/20/17 11:19 70 20 92 Nasal Cannula 2.0 28 Intake and Output 01/20/17 01/21/17 19:00 07:00 Intake Total 1575 ml 1110 ml Output Total 1200 ml 1450 ml Balance 375 ml -340 ml Intake Oral 420 ml IV Total 1155 ml 1110 ml Output Urine Total 1200 ml 1450 ml # Voids 4 Objective WDWN NAD reduced breath sounds bilaterally without rhonchi [id number] without MRG NABS nontender no HSM no CCE nonfocal EOMI Current Medications Medications (Trade) Dose Ordered Sig/Viji Route PRN Reason Start Time Stop Time Status Last Admin Dose Admin Acetaminophen (Tylenol) 650 mg Q4H PRN ORAL T>100.5 01/17/17 16:15 02/16/17 16:14 Albuterol Sulfate 2.5 mg 2.5 mg Q4HRT HHN 01/17/17 19:00 01/22/17 18:59 01/21/17 03:12 Ceftriaxone Sodium/Dextrose (Rocephin/D5W) 55 ml @ 110 mls/hr Q24H IV 01/17/17 18:00 01/24/17 17:59 01/20/17 17:47 Heparin Sodium (Porcine) (Heparin 5000 units/ml) 5,000 units EVERY 12 HOURS SUBQ 01/17/17 21:00 02/16/17 20:59 01/20/17 20:51 Levofloxacin (Levaquin) 500 mg Q24H ORAL 01/18/17 15:00 01/25/17 14:59 01/20/17 15:08 Magnesium Hydroxide (Mom) 30 ml HSPRN PRN ORAL Constipation 01/17/17 21:00 02/16/17 20:59 Methylprednisolone Sodium Succinate 60 mg 60 mg EVERY 6 HOURS IVP 01/18/17 00:00 02/17/17 00:00 01/21/17 06:20 Pantoprazole (Protonix) 40 mg DAILY ORAL 01/18/17 09:00 02/17/17 08:59 01/20/17 09:04 Salmeterol Xinafoate/ Fluticasone (Advair 250/50 Diskus) 1 puffs EVERY 12 HOURS INH 01/17/17 21:00 02/16/17 20:59 01/20/17 21:35 Sodium Chloride (Sodium Chloride 1000ml bag) 1,000 ml @ 100 mls/hr Q10H IV 01/17/17 20:45 02/16/17 20:44 01/21/17 03:54 Tiotropium [place] (Spiriva Inhaler) 1 puff DAILY INH 01/18/17 09:00 02/17/17 08:59 01/20/17 08:47 JORDYN MCARTHUR Jan 21, 2017 08:53
[2017-01-21 09:00] VITALS: BP 147/83
[2017-01-21] MEDS: Heparin 5000 units/ml inj SUBQ SCH (09:11)
[2017-01-21] MEDS: Advair 250/50 Inhaler - 14 dose INH SCH (09:13)
[2017-01-21 12:00] VITALS: BP 145/74
--- NOTE | 2017-01-21 12:11 | Physician Query ---
PLEASE COMPLETE DOCUMENT BEFORE SIGNING Dear Dr. Kenneth Berrios Date: January [employer] Operator/CDS Name: Michael VirgenSARITA [employer] Operator/CDS Phone No.: [phone] Exercise your independent professional judgment when responding to the query. Questions asked do not imply a particular answer is desired or expected. We greatly appreciate your clarification on this issue. CLINICAL DOCUMENTATION STATES: "Pulmonary congestion/COPD with acute exacerbation/Respiratory insufficiency/ shortness of breath/Pulmonaryhypertension &Hypoxemia" documented in the Assessment/Plan of Dr. Kenneth Berrios. CLINICAL FINDINGS SHOW: Blood Culture X 2 shows Staphylococcus Sp Coagulase Chest X-ray:Calcific scarring, volume loss, and bullous change are again demonstrated in the right lung apex. The lungs remain hyperinflated. No acute infiltrates,effusions, or congestion. Granulomatous hilar node calcifications are seen in the right lung apex. The heart size is normal. Aorta is tortuous. 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 Please respond to the following question: Is there a diagnosis specific to these symptoms or values? If so please state below. PHYSICIAN RESPONSE: Condition Present on Admission: [x] Yes [] No []Clinically Undeterminable Please also document in your Progress Notes and/or Discharge Summary and indicate if the condition was present on admission. Kenneth Berrios MD [facility]
--- NOTE | 2017-01-21 12:34 | Infectious Diseases Prog Note ---
Assessment/Plan Assessment/Plan A; COPD exacerbation Hypercapnic respiratory failure Pulmonary HPN Lactic acidosis P: Continue Levaquin F/u lactic acid Subjective ROS Limited/Unobtainable: No HEENT: Reports: no symptoms Respiratory: Reports: productive cough, shortness of breath Gastrointestinal/Abdominal: Reports: no symptoms Genitourinary: Reports: no symptoms Neurologic: Reports: no symptoms Allergies: Coded Allergies: No Known Allergies (Unverified , 08/26/13) Objective Vital Signs Last 24 Hour Vital Signs Date Time Temp Pulse Resp B/P Pulse Ox O2 Delivery O2 Flow Rate FiO2 01/21/17 11:00 Nasal Cannula 01/21/17 11:00 Nasal Cannula 01/21/17 09:15 Nasal Cannula 2.0 28 01/21/17 09:15 95 Nasal Cannula 2.0 28 01/21/17 09:00 85 18 99 Nasal Cannula 2.0 28 01/21/17 09:00 97.5 84 21 147/83 97 Nasal Cannula 2.0 01/21/17 08:55 84 18 98 Nasal Cannula 2.0 28 01/21/17 04:00 97.2 89 23 144/90 94 Nasal Cannula 2.0 01/21/17 04:00 79 01/21/17 03:20 74 18 99 Nasal Cannula 2.0 28 01/21/17 03:12 70 18 98 Nasal Cannula 2.0 28 01/21/17 00:00 86 01/20/17 23:43 98.1 81 20 137/71 Nasal Cannula 3.0 01/20/17 23:07 87 18 98 Nasal Cannula 2.0 28 01/20/17 22:58 85 20 97 Nasal Cannula 2.0 28 01/20/17 20:00 98.2 88 21 154/84 Nasal Cannula 2.0 01/20/17 20:00 89 01/20/17 19:24 88 20 98 Nasal Cannula 2.0 28 01/20/17 19:16 95 Nasal Cannula 3.0 32 01/20/17 19:16 Nasal Cannula 3.0 32 01/20/17 19:16 86 20 95 Nasal Cannula 3.0 32 01/20/17 16:00 98.1 96 21 150/85 100 Nasal Cannula 3.0 01/20/17 16:00 104 01/20/17 15:09 87 20 97 Nasal Cannula 3.0 32 01/20/17 14:59 72 20 92 Nasal Cannula 2.0 28 Height (Feet): 6 Height (Inches): 4.00 Weight (Pounds): 170 General Appearance: no acute distress HEENT: mucous membranes moist Respiratory/Chest: lungs clear, other - O2 by nasal cannula Cardiovascular: normal rate Abdomen: soft, non tender Extremities: no edema Neurologic/Psychiatric: alert, oriented x 3, responsive Current Medications Medications (Trade) Dose Ordered Sig/Viji Route PRN Reason Start Time Stop Time Status Last Admin Dose Admin Acetaminophen (Tylenol) 650 mg Q4H PRN ORAL T>100.5 01/17/17 16:15 02/16/17 16:14 Albuterol Sulfate 2.5 mg 2.5 mg Q4HRT HHN 01/17/17 19:00 01/22/17 18:59 01/21/17 09:13 Ceftriaxone Sodium/Dextrose (Rocephin/D5W) 55 ml @ 110 mls/hr Q24H IV 01/17/17 18:00 01/24/17 17:59 01/20/17 17:47 Heparin Sodium (Porcine) (Heparin 5000 units/ml) 5,000 units EVERY 12 HOURS SUBQ 01/17/17 21:00 02/16/17 20:59 01/21/17 09:11 Levofloxacin (Levaquin) 500 mg Q24H ORAL 01/18/17 15:00 01/25/17 14:59 01/20/17 15:08 Magnesium Hydroxide (Mom) 30 ml HSPRN PRN ORAL Constipation 01/17/17 21:00 02/16/17 20:59 Methylprednisolone Sodium Succinate 60 mg 60 mg EVERY 6 HOURS IVP 01/18/17 00:00 02/17/17 00:00 01/21/17 06:20 Pantoprazole (Protonix) 40 mg DAILY ORAL 01/18/17 09:00 02/17/17 08:59 01/21/17 09:10 Salmeterol Xinafoate/ Fluticasone (Advair 250/50 Diskus) 1 puffs EVERY 12 HOURS INH 01/17/17 21:00 02/16/17 20:59 01/21/17 09:13 Sodium Chloride (Sodium Chloride 1000ml bag) 1,000 ml @ 100 mls/hr Q10H IV 01/17/17 20:45 02/16/17 20:44 01/21/17 03:54 Tiotropium [place] (Spiriva Inhaler) 1 puff DAILY INH 01/18/17 09:00 02/17/17 08:59 01/21/17 09:13 LAYNE RUCKER Jan 21, 2017 12:34
--- NOTE | 2017-01-24 08:07 | Discharge Summary ---
Discharge Summary Hospital Course Date of Admission Jan 17, 2017 at 08:42 Date of Discharge Jan 21, 2017 at 14:50 Admitting Diagnosis COPD EXACEBRATION HPI Kobe Vann is a 76 year old male who was admitted on Jan 17, 2017 at 08:42 for Chronic Obstructive Pulmonary Disease Exacerbation Hospital Course dc summary #[id number] Discharge Medications Continued Medications: Albuterol Sulfate* (Proair Hfa*) 8.5 Gm Hfa.aer.ad 2 PUFFS INH Q6H, #8.5 GM 0 Refills Fluticasone/Salmeterol (Advair 250-50 Diskus) 1 Each Disk.w.dev 1 PUFF INH EVERY 12 HOURS, EA Levofloxacin (Levofloxacin*) 500 Mg Tablet 500 MG ORAL DAILY, TAB Macitentan (Opsumit) 10 Mg Tablet 10 MG PO, TAB Macitentan (Opsumit) 10 Mg Tablet 10 MG PO, TAB Prednisone* (Prednisone*) 10 Mg Tablet 10 MG ORAL DAILY, #10 TAB 0 Refills Roflumilast (Daliresp) 500 Mcg Tablet 500 MCG PO DAILY, TAB Tiotropium [place]* (Spiriva*) 18 Mcg Cap.w.dev 1 PUFF INH DAILY, EA Umeclidinium [place] (Incruse Ellipta) 62.5 Mcg Blst.w.dev 62.5 MCG IH Discharge Condition Upon Discharge: stable Discharge Disposition Patient was discharged to Home (01) Discharge Diagnoses: Discharge Instructions Discharge Instructions Special Instructions I have been assigned to complete a D/C Summary on this account. I was not involved in the patient management Shelli Miguel NP ([place]) Jan 24, 2017 08:07
--- NOTE | 2017-01-24 23:00 | Discharge Summary 2 SIG ---
DATE OF ADMISSION: 01/17/2017 DATE OF DISCHARGE: 01/21/2017 The patient is admitted under Dr. Berrios. REASON FOR ADMISSION: The patient is a 76-year-old male with a history of chronic obstructive pulmonary disease, prior pneumonia, pulmonary hypertension, pneumothorax, and former smoker admitted with shortness of breath, pulmonary congestion, and was diagnosed with acute chronic obstructive pulmonary disease exacerbation. Chest x-ray revealed chronic obstructive pulmonary disease changes, but no acute process. The patient required placement of supplemental oxygen. ABG revealed hypercapnia, pCO2 53, and elevated lactic acid of 2.6. No leukocytosis. Stable hemoglobin and hematocrit. Stable electrolytes. Troponin negative. EKG revealed normal sinus rhythm. The patient was admitted for further management. ADMITTING DIAGNOSES: Includes: 1. Acute chronic obstructive pulmonary disease exacerbation. 2. Hypoxemia. 3. Lactic acidosis. 4. Shortness of breath. 5. Pulmonary congestion 6. Respiratory insufficiency. HOSPITAL STAY: The patient is admitted. Supplemental oxygen and pulmonary toilet provided as needed. The patient suctioned as needed. The patient was started on IV steroids, which were tapered and discontinued prior to discharge. The patient was started on empiric antibiotics. ID consult was requested. The patient initially was on gentle IV hydration. Blood culture revealed Staph coag-negative, likely contaminant as per ID. Home medication resumed. The patient's respiratory status improved. The patient was stable for discharge back to home. Follow up with the primary medical doctor. Continue inhaler at home. DISCHARGE DIAGNOSES: Includes: 1. Acute chronic obstructive pulmonary disease exacerbation. 2. Hypercapnic respiratory failure. 3. Hypoxemia. 4. Pulmonary hypertension. 5. Lactic acidosis. 6. Shortness of breath. DISCHARGE INSTRUCTIONS: The patient was discharged home. Follow up with primary medical doctor. DISCHARGE MEDICATIONS: See medication reconciliation list. Kenneth Berrios M.D. I have been assigned to dictate discharge summary on this account and I was not involved in the patient's management. Shelli [facility]clif[facility] & clinicCrystal NLoPLo DR: RACHEL JOB#: [id number] CC:
== END 2017-01-21 14:50 | disposition home or self-care (01) | DRG 190 ==
LOC: EDBEDREQ 08:22 → EMR 08:33 → 2E 08:42 → EDBEDREQ 08:48
DX: J44.1 Chronic obstructive pulmonary disease with (acute) exacerbation (principal); J96.92 Respiratory failure, unspecified with hypercapnia; J96.91 Respiratory failure, unspecified with hypoxia; E87.2 Acidosis; I27.2 Other secondary pulmonary hypertension; J40 Bronchitis, not specified as acute or chronic; Z87.891 Personal history of nicotine dependence
CPT/HCPCS: 36415; 36600; 71010; 80053; 82550; 82803; 83605; 83880; 84484; 85025; 85610; 85730; 87040; 87181; 93005; 94640; 94664; 94760

== ENCOUNTER 2017-09-16 06:07 | Inpatient (IN) | payer MEDICARE, OTHER ==
[~2017-09-16] VITALS: Ht 190.5 cm; Wt 73.9 kg
[2017-09-16] VITALS (7 sets, daily range): BP systolic 117–156; BP diastolic 73–100
[~2017-09-16 06:07] MED LIST changes: +INCRUSE ELLI62.5 MCG IH; +LEVOFLOXACIN500 MG ORAL; +PREDNISONE10 MG ORAL
--- NOTE | 2017-09-16 06:29 | Emergency Room Report ---
History of Present Illness General Chief Complaint: Dyspnea/Respdistress Source: Patient Present Illness [facility] This is a 77-year-old -[place] male with a history of COPD, oxygen requirement. He is normally on 2 L nasal cannula. He quit smoking 15 years ago but had an extensive heavy smoking history for 52 years. He presents with chief complaint of shortness breath and cough. Onset the last 2 days. Finish her course of prednisone already. No nausea no vomiting. Coughing is increasing productive sputum. Coughing more. Unable to catch his breath. his drove him here. He denies any chest pain. Worse with exertion. Allergies: Coded Allergies: No Known Allergies (Unverified , 08/26/13) Patient History Past Medical History: see triage record, old chart reviewed, COPD Past Surgical History: other Pertinent Family History: none Social History: Denies: smoking Immunizations: other Reviewed Nursing Documentation: PMH: Agreed, PSxH: Agreed Nursing Documentation-PMH Hx Cardiac Problems: Yes Hx Hypertension: Yes Hx Asthma: Yes Hx COPD: Yes Hx Diabetes: No Hx Cancer: No Hx Gastrointestinal Problems: No Hx Neurological Problems: No Review of Systems Eye: Denies: eye pain, blurred vision ENT: Denies: ear pain, nose congestion, throat swelling Respiratory: Reports: cough, shortness of breath, sputum Cardiovascular: Denies: chest pain, palpitations Gastrointestinal: Denies: abdominal pain, diarrhea, nausea, vomiting Musculoskeletal: Denies: back pain, joint pain Skin: Denies: rash Neurological: Denies: headache, numbness Endocrine: Denies: increased thirst, increased urine Hematologic/Lymphatic: Denies: easy bruising All Other Systems: negative except mentioned in HPI Physical Exam Vital Signs Date Time Temp Pulse Resp B/P (MAP) Pulse Ox O2 Delivery O2 Flow Rate FiO2 09/16/17 06:20 97.6 94 24 176/98 94 Nasal Cannula 4.0 97.5 vitals with hypertension Sp02 EP Interpretation: reviewed, normal General Appearance: alert, moderate distress, thin Head: normocephalic, atraumatic Eyes: bilateral eye PERRL, bilateral eye EOMI ENT: hearing grossly normal, normal pharynx Neck: full range of motion, supple, no meningismus Respiratory: chest non-tender, respiratory distress, decreased breath sounds, accessory muscle use, wheezing Cardiovascular #1: regular rate, rhythm, no murmur Gastrointestinal: normal bowel sounds, non tender, no mass, no organomegaly, no bruit, non-distended Musculoskeletal: back normal, gait/station normal, normal range of motion Psychiatric: mood/affect normal Skin: warm/dry Medical Decision Making Diagnostic Impression: Primary Impression: COPD exacerbation ER Course Patient with COPD exacerbation. I will sign this patient out to Dr. Posadas for labs and final disposition. EKG Diagnostic Results Rate: normal Rhythm: NSR ST Segments: no acute changes Rhythm Strip Diag. Results Rhythm Strip Time: 06:28 EP Interpretation: yes Rate: 90 Rhythm: NSR, no PVC's Last Vital Signs Date Time Temp Pulse Resp B/P (MAP) Pulse Ox O2 Delivery O2 Flow Rate FiO2 09/16/17 06:20 97.6 94 24 176/98 94 Nasal Cannula 4.0 97.5 CHATA WARREN M.D. Sep 16, 2017 06:29
[2017-09-16] MEDS ORDERED: Albuterol ud Inhalation HHN ONE ×2 (06:30→07:45)
[2017-09-16] MEDS ORDERED: Solu-MEDROL 125mg Inj IVP ONE (06:30)
[2017-09-16] MEDS ORDERED: Ipratropium 0.02% Inh Soln 2.5ml UD HHN ONE ×2 (06:30→07:45)
[2017-09-16 06:55] LABS: APPEARANCE,URINE CLEAR; BILIRUBIN, URINE NEGATIVE (NEGATIVE); COLOR,URINE PALE YELLOW; GLUCOSE, URINE (UA) NEGATIVE (NEGATIVE); KETONES,URINE NEGATIVE (NEGATIVE); LEUKOCYTE ESTERASE ,URINE NEGATIVE (NEGATIVE); NITRITE,URINE NEGATIVE (NEGATIVE); PH,URINE 7 (4.5-8.0); PROTEIN,URINE NEGATIVE (NEGATIVE); UROBILINOGEN,URINE NORMAL MG/DL (0.0-1.0)
[2017-09-16 07:08] LABS: BASOPHILS % (AUTO) 1.2 % (0.0-2.0); EOSINOPHILS % (AUTO) 0.1 % (0.0-3.0); HEMATOCRIT 49.4 % (42.0-52.0); LYMPHOCYTES % (AUTO) 13.6 % (20.0-45.0); MEAN CORPUSCULAR VOLUME 93 FL (80-99); MONOCYTES % (AUTO) 4.5 % (1.0-10.0); NEUTROPHILS % (AUTO) 80.7 % (45.0-75.0); PLATELET COUNT 253 K/UL (150-450); RED BLOOD COUNT 5.29 M/UL (4.70-6.10); RED CELL DISTRIBUTION WIDTH 12.7 % (11.6-14.8); WHITE BLOOD COUNT 4.9 K/UL (4.8-10.8)
[2017-09-16 07:17] LABS: ALANINE AMINOTRANSFERASE 23 U/L (12-78); ALBUMIN 3.7 G/DL (3.4-5.0); ALBUMIN/GLOBULIN RATIO 0.9 (1.0-2.7); ALKALINE PHOSPHATASE 60 U/L (46-116); ANION GAP 1 mmol/L (5-15); ASPARTATE AMINO TRANSFERASE 24 U/L (15-37); BILIRUBIN,TOTAL 0.5 MG/DL (0.2-1.0); BLOOD UREA NITROGEN 9 mg/dL (7-18); CALCIUM 9.8 MG/DL (8.5-10.1); CARBON DIOXIDE 39 MMOL/L (21-32); CHLORIDE 97 MMOL/L (98-107); CKMB 1.9 NG/ML (0.0-3.6); CREATINE KINASE 133 U/L (26-308); POTASSIUM 4.4 MMOL/L (3.5-5.1); SODIUM 139 MMOL/L (136-145)
--- NOTE | 2017-09-16 08:07 | Emergency Room Report ---
History of Present Illness General Chief Complaint: Dyspnea/Respdistress Source: Patient Present Illness Allergies: Coded Allergies: No Known Allergies (Unverified , 08/26/13) Nursing Documentation-PMH Hx Cardiac Problems: Yes Hx Hypertension: Yes Hx Asthma: Yes Hx COPD: Yes Hx Diabetes: No Hx Cancer: No Hx Gastrointestinal Problems: No Hx Neurological Problems: No Physical Exam Vital Signs Date Time Temp Pulse Resp B/P (MAP) Pulse Ox O2 Delivery O2 Flow Rate FiO2 09/16/17 06:20 97.6 94 24 176/98 94 Nasal Cannula 4.0 97.5 09/16/17 06:30 32 Medical Decision Making Diagnostic Impression: Primary Impression: COPD exacerbation Additional Impression: Hypoxia ER Course Patient presents with complaints of shortness of breath Please refer to initial note for the initial history and exam On reevaluation patient is doing better however still significant wheezing bilaterally Patient appears mildly tachypneic Magnesium has been initiated Patient receiving repeat breathing treatment X-ray imaging does not show any acute pathology The patient will require further inpatient care Labs Test 09/16/17 06:30 09/16/17 06:40 White Blood Count 4.9 K/UL (4.8-10.8) Red Blood Count 5.29 M/UL (4.70-6.10) Hemoglobin 16.0 G/DL (14.2-18.0) Hematocrit 49.4 % (42.0-52.0) Mean Corpuscular Volume 93 FL (80-99) Mean Corpuscular Hemoglobin 30.3 PG (27.0-31.0) Mean Corpuscular Hemoglobin Concent 32.4 G/DL (32.0-36.0) Red Cell Distribution Width 12.7 % (11.6-14.8) Platelet Count 253 K/UL (150-450) Mean Platelet Volume 6.3 FL (6.5-10.1) Neutrophils (%) (Auto) 80.7 % (45.0-75.0) Lymphocytes (%) (Auto) 13.6 % (20.0-45.0) Monocytes (%) (Auto) 4.5 % (1.0-10.0) Eosinophils (%) (Auto) 0.1 % (0.0-3.0) Basophils (%) (Auto) 1.2 % (0.0-2.0) Sodium Level 139 MMOL/L (136-145) Potassium Level 4.4 MMOL/L (3.5-5.1) Chloride Level 97 MMOL/L (98-107) Carbon Dioxide Level 39 MMOL/L (21-32) Anion Gap 1 mmol/L (5-15) Blood Urea Nitrogen 9 mg/dL (7-18) Creatinine 1.0 MG/DL (0.55-1.30) Estimat Glomerular Filtration Rate mL/min (>60) Glucose Level 116 MG/DL (74-106) Calcium Level 9.8 MG/DL (8.5-10.1) Total Bilirubin 0.5 MG/DL (0.2-1.0) Aspartate Amino Transf (AST/SGOT) 24 U/L (15-37) Alanine Aminotransferase (ALT/SGPT) 23 U/L (12-78) Alkaline Phosphatase 60 U/L (46-116) Total Creatine Kinase 133 U/L (26-308) Creatine Kinase MB 1.9 NG/ML (0.0-3.6) Creatine Kinase MB Relative Index 1.4 Troponin I 0.000 ng/mL (0.000-0.056) Total Protein 8.0 G/DL (6.4-8.2) Albumin 3.7 G/DL (3.4-5.0) Globulin 4.3 g/dL Albumin/Globulin Ratio 0.9 (1.0-2.7) Urine Color Pale yellow Urine Appearance Clear Urine pH 7 (4.5-8.0) Urine Specific [place] 1.010 (1.005-1.035) Urine Protein Negative (NEGATIVE) Urine Glucose (UA) Negative (NEGATIVE) Urine Ketones Negative (NEGATIVE) Urine Occult Blood 1+ (NEGATIVE) Urine Nitrite Negative (NEGATIVE) Urine Bilirubin Negative (NEGATIVE) Urine Urobilinogen Normal MG/DL (0.0-1.0) Urine Leukocyte Esterase Negative (NEGATIVE) Urine RBC 0-2 /HPF (0 - 0) Urine WBC 0 /HPF (0 - 0) Urine Squamous Epithelial Cells Occasional /LPF Urine Bacteria Occasional /HPF (NONE) Rhythm Strip Diag. Results EP Interpretation: yes Rate: 77 Rhythm: NSR, no PVC's, no ectopy Chest X-Ray Diagnostic Results Chest X-Ray Diagnostic Results : Chest X-Ray Ordered: Yes # of Views/Limited/Complete: 1 View Indication: Shortness of Breath EP Interpretation: Yes Interpretation: no consolidation, no effusion, no pneumothorax, no acute cardiopulmonary disease - Right upper lobe chronic scarring Impression: No acute disease Electronically Signed by: Keith Castillo DO Last Vital Signs Date Time Temp Pulse Resp B/P (MAP) Pulse Ox O2 Delivery O2 Flow Rate FiO2 09/16/17 07:50 86 16 100 Nasal Cannula 2.0 28 09/16/17 07:50 97.5 149/76 97.5 Status: improved Disposition: ADMITTED INPATIENT Condition: Serious Referrals: JORDYN MCARTHUR (PCP) KEITH CASTILLO D.O. Sep 16, 2017 08:07
--- NOTE | 2017-09-16 10:50 | Diagnostic Imaging Report ---
Indication: Shortness of breath Technique: One view of the chest Comparison: 01/17/2017 Findings: Again demonstrated is right upper lobe scarring and volume loss. Again demonstrated is hyperinflation. No focal infiltrates, effusions, or congestion. Probable small cystic spaces are seen in the left lung base. Heart size is normal. The aorta is tortuous. There may be esophageal dilatation with air, and so this is unchanged. Granulomatous calcifications are seen in the right pulmonary hilum. Findings are unchanged Impression: No acute process Evidence of COPD Evidence of right upper lobe scarring and volume loss Evidence old granulomatous disease
[2017-09-16] MEDS ORDERED: Milk of Magnesia 30ml Ud ORAL PRN (11:30)
[2017-09-16] MEDS ORDERED: Zolpidem 5mg tab ORAL PRN ×2 (11:30→18:00)
[2017-09-16] MEDS ORDERED: Pneumococcal Vaccine 25mcg/0.5ml IM ONE (11:45)
[2017-09-16] MEDS ORDERED: cefTRIAXone 1gm/D5W 55ml IVPB SCH ×2 (13:00)
[2017-09-16] MEDS ORDERED: Albuterol/Ipratropium 3ml neb HHN SCH (15:00)
--- NOTE | 2017-09-16 17:15 | History and Physical Report ---
DATE OF ADMISSION: 09/16/2017 PULMONARY EVALUATION CONSULTING PHYSICIAN: Kenneth Berrios M.D. REASON FOR ADMISSION: COPD with acute exacerbation. HISTORY OF PRESENT ILLNESS: The patient is a 77-year-old male with a longstanding history of severe end-stage COPD, oxygen dependent. The patient has not been smoking for the past 15 years, but has had significant respiratory complaints. The patient has had recent and recurrent respiratory infections. The patient recently completed his prednisone dosing, but has not improved. The patient also has productive sputum, difficulty to breathe. The patient resides a long distance away, but was brought in by his for admission. The patient was treated in the emergency room, but has failed to improve. The patient's care discussed and reviewed, and x-ray images did not reveal any significant pathology at this time. The patient admitted for ongoing care and management and acute COPD exacerbation. PAST MEDICAL HISTORY: Notable for pulmonary hypertension, COPD, hypertension, hypoxemia, and hypercapnia. MEDICATIONS: Reviewed. ALLERGIES: Reviewed. SOCIAL HISTORY: Longstanding history of smoking. Does not smoke or drink currently. REVIEW OF SYSTEMS: Otherwise negative with the exception of the above. All 10 points reviewed. FAMILY HISTORY: Otherwise noncontributory other than the above. PHYSICAL EXAMINATION: GENERAL: A well-developed male, in some shortness of breath. VITAL SIGNS: Temperature 97.5, pulse 86, saturations 100% on 2 liters, and respiratory rate is 26. HEENT: Negative. Extraocular movements are grossly intact. NECK: Supple. LUNGS: With scattered wheezes. Poor air entry, overall. CARDIAC: S1 and S2. Regular rhythm without murmurs, rubs, or gallops ABDOMEN: Soft, nontender, and nondistended. EXTREMITIES: No cyanosis, clubbing, or edema. NEUROLOGIC: Grossly nonfocal. LABORATORY DATA: Reviewed. CBC fairly negative. Electrolytes fairly negative, however, the bicarbonate is 39, consistent with chronic CO2 retention. Troponin is negative. X-ray with hyperinflation, but no acute infiltrates. IMPRESSION: 1. Chronic obstructive pulmonary disease with acute exacerbation. 2. Shortness of breath. 3. Respiratory infection likely. 4. Hypertension likely. 5. Hypoxemia. 6. Hypercapnia. RECOMMENDATIONS: Supportive care. Oxygen therapy. Respiratory care. IV Solu-Medrol. Empiric antibiotics. DVT prophylaxis. Monitor clinically for improvement, and stabilize and discharge back to home when improved. Christie Watkins JOB#: [id number] JOEY
[2017-09-16] MEDS ORDERED: Advair 250/50 Inhaler - 14 dose INH SCH (18:00)
[2017-09-16] MEDS: Albuterol/Ipratropium 3ml neb HHN SCH (18:57)
[2017-09-16] MEDS: Advair 250/50 Inhaler - 14 dose INH SCH (20:32)
[2017-09-16] MEDS: Solu-MEDROL 125mg Inj IVP SCH (20:38)
[2017-09-16] MEDS: Heparin 5000 units/ml inj SUBQ SCH (20:39)
[2017-09-16] MEDS ORDERED: Heparin 5000 units/ml inj SUBQ SCH (21:00)
[2017-09-16] MEDS ORDERED: Solu-MEDROL 125mg Inj IVP SCH (21:00)
[2017-09-17] VITALS: BP 119/77
[2017-09-17] MEDS: Albuterol/Ipratropium 3ml neb HHN SCH ×7 (00:16→23:52)
[2017-09-17 08:00] VITALS: BP 115/77
[2017-09-17] MEDS: Solu-MEDROL 125mg Inj IVP SCH ×2 (08:38→21:06)
[2017-09-17] MEDS: Heparin 5000 units/ml inj SUBQ SCH ×2 (08:43→21:09)
[2017-09-17 09:00] VITALS: BP 115/77
[2017-09-17] MEDS ORDERED: DALIRESP 500 MG ORAL SCH (09:00)
[2017-09-17] MEDS ORDERED: OPSUMIT 10 MG ORAL SCH (09:00)
[2017-09-17] MEDS: Advair 250/50 Inhaler - 14 dose INH SCH ×2 (09:09→18:00)
[2017-09-17] MEDS ORDERED: Milk of Magnesia 30ml Ud ORAL PRN (11:30)
[2017-09-17 12:00] VITALS: BP 128/72
--- NOTE | 2017-09-17 13:07 | General Progress Note ---
Assessment/Plan Assessment/Plan IMPRESSION: 1. Chronic obstructive pulmonary disease with acute exacerbation. 2. Shortness of breath. 3. Respiratory infection likely. 4. Hypertension likely. 5. Hypoxemia. 6. Hypercapnia. 7. pulmonary hypertension PLAN continue same BIPAP PRN follow up ABG improved recheck in am IV solumedrol IV antibiotics respiratory care monitor clinically impression, plan, and exam edited and reviewed in detail care discussed with RN Subjective Allergies: Coded Allergies: No Known Allergies (Unverified , 08/26/13) Subjective improved still with sob difficult to mobilize secretions Objective Last 24 Hour Vital Signs Date Time Temp Pulse Resp B/P (MAP) Pulse Ox O2 Delivery O2 Flow Rate FiO2 09/17/17 12:00 84 09/17/17 12:00 97.3 84 20 128/72 98 Nasal Cannula 2.0 97.3 09/17/17 11:44 Nasal Cannula 2.0 09/17/17 11:44 Nasal Cannula 3.0 32 09/17/17 09:10 71 93 3.0 32 09/17/17 09:00 98.0 84 18 115/77 98 Nasal Cannula 2.0 98.0 09/17/17 09:00 2.0 09/17/17 08:00 98.0 84 18 115/77 98 Bi-pap 35 98.0 09/17/17 08:00 69 09/17/17 08:00 35 09/17/17 07:28 74 15 99 Bi-pap 09/17/17 07:19 70 15 99 Bi-pap 35 09/17/17 07:16 70 15 99 Facial 35 09/17/17 04:55 72 17 98 Facial 35 09/17/17 04:00 68 09/17/17 04:00 35 09/17/17 03:21 77 16 98 Bi-pap 09/17/17 03:20 78 17 97 Facial 35 09/17/17 03:20 74 17 96 Bi-pap 35 09/17/17 01:09 74 19 98 Facial 35 09/17/17 00:00 97.9 82 18 119/77 98 Bi-pap 35 97.9 09/17/17 00:00 74 20 99 Nasal Cannula 2.0 28 09/17/17 00:00 77 09/17/17 00:00 35 09/17/17 00:00 76 20 94 Nasal Cannula 2.0 28 09/16/17 22:30 91 92 2.0 28 09/16/17 20:33 90 15 98 Facial 35 09/16/17 20:00 98.2 84 20 131/76 99 Bi-pap 35 98.2 09/16/17 20:00 35 09/16/17 20:00 82 09/16/17 19:01 93 16 99 Facial 35 09/16/17 19:00 94 15 100 Bi-pap 35 09/16/17 18:59 93 15 99 Bi-pap 35 09/16/17 18:03 76 24 99 Facial 2.0 35 09/16/17 16:00 97.0 76 24 117/73 99 Bi-pap 35 97.0 09/16/17 16:00 76 24 99 Facial 2.0 35 09/16/17 16:00 74 09/16/17 16:00 35 09/16/17 13:59 94 139/81 Intake and Output 09/16/17 09/17/17 19:00 07:00 Intake Total 775 ml 120 ml Output Total 500 ml 800 ml Balance 275 ml -680 ml Intake Oral 720 ml 120 ml IV Total 55 ml Output Urine Total 500 ml 800 ml # Voids 3 Laboratory Tests 09/16/17 17:00: Arterial Blood pH 7.320L, Arterial Blood Partial Pressure CO2 75.2*H, Arterial Blood Partial Pressure O2 91.1, Arterial Blood HCO3 38.2H, Arterial Blood Oxygen Saturation 96.2, Arterial Blood Base Excess 9.0, Gilbert Test Positive Height (Feet): 6 Height (Inches): 3.00 Weight (Pounds): 163 Objective GENERAL: A well-developed male, some sob HEENT: Negative. Extraocular movements are grossly intact. NECK: Supple. LUNGS: With scattered wheezes. Poor air entry, overall. with mild improvement CARDIAC: S1 and S2. Regular rhythm without murmurs, rubs, or gallops ABDOMEN: Soft, nontender, and nondistended. EXTREMITIES: No cyanosis, clubbing, or edema. NEUROLOGIC: Grossly nonfocal.alert REECEJORDYN VILLANUEVA Sep 17, 2017 13:07
[2017-09-17] MEDS: cefTRIAXone 1 GM in D5W 55 ML IVPB SCH (13:21)
[2017-09-17 16:00] VITALS: BP 120/65
[2017-09-17 20:00] VITALS: BP 134/75
[2017-09-18] VITALS: BP 128/86
[2017-09-18 04:00] VITALS: BP 132/71
[2017-09-18] MEDS: Albuterol/Ipratropium 3ml neb HHN SCH ×6 (04:01→23:37)
[2017-09-18 08:00] VITALS: BP 125/81
[2017-09-18] MEDS: Solu-MEDROL 125mg Inj IVP SCH ×2 (08:48→21:00)
[2017-09-18] MEDS: Heparin 5000 units/ml inj SUBQ SCH ×2 (08:50→21:45)
--- NOTE | 2017-09-18 09:02 | General Progress Note ---
Assessment/Plan Assessment/Plan IMPRESSION: 1. Chronic obstructive pulmonary disease with acute exacerbation. 2. Shortness of breath. 3. Respiratory infection likely. 4. Hypertension likely. 5. Hypoxemia. 6. Hypercapnia. 7. pulmonary hypertension PLAN continue same BIPAP PRN follow up ABG today recheck in am IV solumedrol- taper in am IV antibiotics ? dc respiratory care monitor clinically for improvement has oxygen at home impression, plan, and exam edited and reviewed in detail care discussed with RN Subjective Allergies: Coded Allergies: No Known Allergies (Unverified , 08/26/13) Subjective slow improvement still with sob difficult to mobilize secretions but feels better Objective Last 24 Hour Vital Signs Date Time Temp Pulse Resp B/P (MAP) Pulse Ox O2 Delivery O2 Flow Rate FiO2 09/18/17 06:40 88 20 98 Nasal Cannula 2.0 28 09/18/17 06:30 86 18 96 Nasal Cannula 3.0 32 09/18/17 04:00 97.2 83 20 132/71 94 Nasal Cannula 2.0 97.2 09/18/17 04:00 82 09/18/17 03:28 88 22 96 Nasal Cannula 2.0 28 09/18/17 03:21 84 22 94 Nasal Cannula 3.0 32 09/18/17 00:00 85 09/18/17 00:00 97.7 92 20 128/86 97 Nasal Cannula 2.0 97.7 09/17/17 23:15 87 20 97 Nasal Cannula 2.0 28 09/17/17 23:04 86 20 96 Nasal Cannula 3.0 32 09/17/17 20:00 92 09/17/17 20:00 98.1 92 20 134/75 93 Nasal Cannula 2.0 98.1 09/17/17 19:28 82 22 97 Nasal Cannula 3.0 09/17/17 19:17 79 22 93 Nasal Cannula 3.0 32 09/17/17 16:00 79 09/17/17 16:00 2.0 09/17/17 16:00 90 09/17/17 16:00 97.5 84 20 120/65 98 Nasal Cannula 2.0 97.5 09/17/17 15:35 79 18 97 Nasal Cannula 3.0 09/17/17 15:24 78 20 95 Nasal Cannula 3.0 32 09/17/17 12:00 84 09/17/17 12:00 97.3 84 20 128/72 98 Nasal Cannula 2.0 97.3 09/17/17 11:44 Nasal Cannula 2.0 09/17/17 11:44 Nasal Cannula 3.0 32 09/17/17 09:10 71 93 3.0 32 Intake and Output 09/17/17 09/18/17 19:00 07:00 Intake Total 1110 ml 800 ml Output Total 500 ml 1530 ml Balance 610 ml -730 ml Intake Oral 1000 ml 800 ml IV Total 110 ml Output Urine Total 500 ml 1530 ml Height (Feet): 6 Height (Inches): 3.00 Weight (Pounds): 163 Objective GENERAL: A well-developed male, some sob with any activity HEENT: Negative. Extraocular movements are grossly intact. NECK: Supple. LUNGS: With persistent wheezes. Poor air entry, overall. no rhonchi CARDIAC: S1 and S2. Regular rhythm without murmurs, rubs, or gallops ABDOMEN: Soft, nontender, and nondistended. EXTREMITIES: No cyanosis, clubbing, or edema. NEUROLOGIC: Grossly nonfocal.alert JORDYN MCARTHUR Sep 18, 2017 09:02
[2017-09-18] MEDS: Advair 250/50 Inhaler - 14 dose INH SCH (09:12)
[2017-09-18] MEDS ORDERED: INCRUSE ELLIPTA 62.5MCG INH SCH (10:00)
[2017-09-18 12:00] VITALS: BP 115/75
[2017-09-18] MEDS: cefTRIAXone 1 GM in D5W 55 ML IVPB SCH (12:56)
[2017-09-18 16:00] VITALS: BP 128/77
--- NOTE | 2017-09-18 16:33 | Cardiology Report ---
APPROVED REPORT EKG Measurement Heart [id number] RI [id number] Sinus rhythm Right atrial enlargement Borderline ECG
[2017-09-18] MEDS ORDERED: Zolpidem 5mg tab ORAL PRN (18:00)
[2017-09-18] MEDS ORDERED: Milk of Magnesia 30ml Ud ORAL PRN (19:00)
[2017-09-18 20:00] VITALS: BP 135/74
[2017-09-19] VITALS: BP 135/77
[2017-09-19] MEDS: Albuterol/Ipratropium 3ml neb HHN SCH ×5 (03:00→19:37)
[2017-09-19 04:00] VITALS: BP 96/64
[2017-09-19 08:00] VITALS: BP 111/71
[2017-09-19] MEDS ORDERED: DALIRESP ORAL SCH (09:00)
[2017-09-19] MEDS ORDERED: INCRUSE ELLIPTA 62.5 MCG INH SCH (09:00)
[2017-09-19] MEDS ORDERED: INCRUSE ELLIPTA INH SCH (09:00)
[2017-09-19] MEDS ORDERED: OPSUMIT ORAL SCH (09:00)
[2017-09-19] MEDS: Advair 250/50 Inhaler - 14 dose INH SCH ×2 (09:09→19:42)
[2017-09-19] MEDS: Solu-MEDROL 125mg Inj IVP SCH (09:23)
[2017-09-19] MEDS: Heparin 5000 units/ml inj SUBQ SCH (09:25)
--- NOTE | 2017-09-19 11:42 | General Progress Note ---
Assessment/Plan Assessment/Plan IMPRESSION: 1. Chronic obstructive pulmonary disease with acute exacerbation. 2. Shortness of breath. 3. Respiratory infection likely. 4. Hypertension likely. 5. Hypoxemia. 6. Hypercapnia. 7. pulmonary hypertension PLAN continue same dc BIPAP assess for home trilogy with chronic respiratory failure and co2 retention follow up ABG noted recheck in am IV solumedrol- dc with slow prednisone taper IV antibiotics ok to dc respiratory care monitor clinically for improvement has oxygen at home dc home impression, plan, and exam edited and reviewed in detail care discussed with RN Subjective Allergies: Coded Allergies: No Known Allergies (Unverified , 08/26/13) Subjective much improved reduced sob ready for dc Objective Last 24 Hour Vital Signs Date Time Temp Pulse Resp B/P (MAP) Pulse Ox O2 Delivery O2 Flow Rate FiO2 09/19/17 10:57 83 18 98 Nasal Cannula 2.0 28 09/19/17 10:49 80 18 95 Nasal Cannula 2.0 28 09/19/17 10:48 80 18 96 Nasal Cannula 2.0 28 09/19/17 10:48 80 18 96 Nasal Cannula 2.0 28 09/19/17 09:10 82 18 98 Nasal Cannula 2.0 28 09/19/17 09:09 82 18 98 Nasal Cannula 2.0 28 09/19/17 08:08 85 18 99 Nasal Cannula 2.0 28 09/19/17 08:00 97.5 96 18 111/71 96 Nasal Cannula 2.0 97.5 09/19/17 07:58 84 18 96 Nasal Cannula 2.0 28 09/19/17 04:00 97.9 82 19 96/64 100 Nasal Cannula 2.0 97.9 09/19/17 03:08 Nasal Cannula 2.0 28 09/19/17 03:08 Nasal Cannula 2.0 28 09/19/17 00:00 97.8 96 20 135/77 96 Nasal Cannula 2.0 97.8 09/18/17 23:11 81 18 96 Nasal Cannula 2.0 28 09/18/17 23:05 86 18 94 Nasal Cannula 2.0 28 09/18/17 21:12 Nasal Cannula 2.0 28 09/18/17 21:12 Nasal Cannula 2.0 28 09/18/17 20:00 98.0 94 19 135/74 97 Nasal Cannula 2.0 98.0 09/18/17 19:20 84 18 95 Nasal Cannula 2.0 28 09/18/17 19:04 92 20 93 Nasal Cannula 2.0 28 09/18/17 16:00 104 09/18/17 16:00 97.5 94 20 128/77 99 Nasal Cannula 2.0 97.5 09/18/17 14:40 72 16 96 Nasal Cannula 2.0 28 09/18/17 14:29 71 18 91 Nasal Cannula 2.0 32 09/18/17 12:00 87 09/18/17 12:00 97.3 99 18 115/75 99 Nasal Cannula 2.0 97.3 Intake and Output 09/18/17 09/19/17 19:00 07:00 Intake Total 355 ml Output Total 200 ml 250 ml Balance 155 ml -250 ml Intake Oral 300 ml IV Total 55 ml Output Urine Total 200 ml 250 ml # Voids 2 2 Height (Feet): 6 Height (Inches): 3.00 Weight (Pounds): 163 Objective GENERAL: A well-developed male, some sob with any activity HEENT: Negative. Extraocular movements are grossly intact. NECK: Supple. LUNGS: With resolved wheezes. Poor air entry, overall. no rhonchi CARDIAC: S1 and S2. Regular rhythm without murmurs, rubs, or gallops ABDOMEN: Soft, nontender, and nondistended. EXTREMITIES: No cyanosis, clubbing, or edema. NEUROLOGIC: Grossly nonfocal.alert JORDYN MCARTHUR Sep 19, 2017 11:42
[2017-09-19 12:00] VITALS: BP 115/73
[2017-09-19 16:00] VITALS: BP 129/76
--- NOTE | 2017-09-19 16:09 | Physician Query ---
--------- THIS DOCUMENT IS A PERMANENT PART OF THE MEDICAL RECORD --------- PLEASE COMPLETE THE FORM BEFORE SIGNING Dear JORDYN Teixeira Date 09/19/17 Security And Compliance Analyst/CDS Lexus Guerra Security And Compliance Analyst/CDS Phone #: [phone] Exercise your independent professional judgment when responding to query. Questions asked do not imply particular answer is desired or expected. We greatly appreciate your clarification on this issue. Clinical Documentation States: Consultation Note: (09/16/17) o Chronic obstructive pulmonary disease with acute exacerbation. o Shortness of breath. o Respiratory infection likely. o Hypoxemia. o Hypercapnia. Clinical Findings Show: ABG: PH=7.285, pCO2=89.2, HCO3=41,4 RR:24, 23, 23, 24 Patient was on BIPAP for 12 hours. Please clarify if the patient had any of the following conditions based on the above clinical findings: []Respiratory Failure [] Acute [] Chronic (on home O2) [x]Acute on Chronic [] Acute Respiratory Distress [] Unable to determine [] Other: Condition Present on Admission: [x] Yes [] No []Clinically Undeterminable Please also document in your Progress Notes and/or Discharge Summary and indicate if the condition was present on admission. Dr. JORDYN MCARTHUR Date/Time MTDD
[2017-09-19 19:19] VITALS: BP 108/68
--- NOTE | 2017-09-22 10:19 | Discharge Summary ---
Discharge Summary Hospital Course Date of Admission Sep 16, 2017 at 07:50 Date of Discharge Sep 19, 2017 at 20:45 Admitting Diagnosis COPD EXACERBATION HPI Kobe Vann is a 77 year old male who was admitted on Sep 16, 2017 at 07:50 for Chronic Obstructive Pulmonary Disease Exacerbation Hospital Course dc summary #[id number] Discharge Medications Continued Medications: Albuterol Sulfate* (Proair Hfa*) 8.5 Gm Hfa.aer.ad 2 PUFFS INH Q6H, #8.5 GM 0 Refills Fluticasone/Salmeterol (Advair 250-50 Diskus) 1 Each Disk.w.dev 1 PUFF INH EVERY 12 HOURS, EA Levofloxacin (Levofloxacin*) 500 Mg Tablet 500 MG ORAL DAILY, TAB Macitentan (Opsumit) 10 Mg Tablet 10 MG PO, TAB Macitentan (Opsumit) 10 Mg Tablet 10 MG PO, TAB Prednisone* (Prednisone*) 10 Mg Tablet 10 MG ORAL DAILY, #10 TAB 0 Refills Roflumilast (Daliresp) 500 Mcg Tablet 500 MCG PO DAILY, TAB Tiotropium Blodgett* (Spiriva*) 18 Mcg Cap.w.dev 1 PUFF INH DAILY, EA Umeclidinium Blodgett (Incruse Ellipta) 62.5 Mcg Blst.w.dev 62.5 MCG IH Discharge Condition Upon Discharge: stable Discharge Disposition Patient was discharged to Home () Discharge Diagnoses: Discharge Instructions Discharge Instructions Special Instructions I have been assigned to complete a D/C Summary on this account. I was not involved in the patient management Shelli Miguel NP (Vanchtein) Sep 22, 2017 10:19
--- NOTE | 2017-09-23 03:45 | Discharge Summary 2 SIG ---
DATE OF ADMISSION: 09/16/2017 DATE OF DISCHARGE: 09/19/2017 REASON FOR ADMISSION: 77-year-old male with a history of COPD, hypertension, home oxygen dependent with past extensive heavy smoking history for 52 years, but quit 15 years ago, presented with a chief complaint of shortness of breath and cough for two days. The patient reported increasing cough with productive phlegm. He was unable to catch breath and had to drove him to the emergency department. He denied chest pain. The patient was placed on four liters of nasal cannula with a pulse oximetry of 94%, was tachypneic with respiratory rate of 24, and blood pressure was elevated- 176/98. EKG showed normal sinus rhythm. No acute ischemic changes. Troponin was negative. Chest x-ray showed no acute cardiopulmonary pathology, but findings were consistent with COPD. ABG revealed severe hypercapnia with pCO2 of 89. The patient was placed on a BiPAP and admitted with diagnosis of chronic obstructive pulmonary disease with acute exacerbation and acute on chronic respiratory failure. HOSPITAL COURSE: The patient was admitted. The patient was initially on BiPAP, followed up with ABG, hypercapnia was improving, likely element of acute on chronic. Hypercapnia improved, and patient was able to be downgraded to oxygen via nasal cannula. The patient was started on the IV steroids and empiric antibiotics. The patient's home inhaler were continued. DVT and GI prophylaxis provided. Blood pressure was closely monitored and stabilized, prior to discharge -108/68 Bowel regimen instituted. The patient showed clinical signs of improvement, was cleared for discharge home. IV steroids gradually tapered and changed to oral upon discharge. Antibiotics discontinued. Follow up with primary care provider and momd teacher. The patient has oxygen at home. FINAL DIAGNOSIS: 1. Acute on chronic respiratory failure. 2. Chronic obstructive pulmonary disease with acute exacerbation. 3. Hypercapnia. 4. Hypertension. 5. Pulmonary hypertension. Kenneth Berrios M.D. I have been assigned to dictate discharge summary on this account and I was not involved in the patient's management. Shelli Miguel N.P. (Vanchtein) DR: CRISTA JOB#: [id number] CC: JOEY
== END 2017-09-19 20:45 | disposition home or self-care (01) | DRG 190 ==
LOC: EMR 06:49 → 2E 07:50 → EDBEDREQ 08:03 → 2W 15:15 → 4W 09-18 18:15
PROC: 5A09357 Assistance with Respiratory Ventilation, Less than 24 Consecutive Hours, Continuous Positive Airway Pressure (ICD-10-PCS; principal; 2017-09-16)
DX: J44.1 Chronic obstructive pulmonary disease with (acute) exacerbation (principal); J96.22 Acute and chronic respiratory failure with hypercapnia; I10 Essential (primary) hypertension; Z87.891 Personal history of nicotine dependence
CPT/HCPCS: 36415; 36600; 71045; 80053; 81003; 82550; 82553; 82803; 84484; 85025; 93005; 94640; 94660; 94664; 99285; J7620

== ENCOUNTER 2019-03-22 22:57 | Inpatient (IN) | payer MEDICARE, OTHER ==
[~2019-03-22] VITALS: Ht 190.5 cm; Wt 76.7 kg
[2019-03-22] MEDS ORDERED: Ipratropium 0.02% Inh Soln 2.5ml UD HHN ONE (23:15)
[2019-03-22] MEDS ORDERED: Albuterol ud Inhalation HHN ONE (23:15)
[2019-03-22] MEDS ORDERED: Solu-MEDROL 125mg Inj IVP ONE (23:15)
[2019-03-22 23:16] VITALS: BP 124/71
--- NOTE | 2019-03-22 23:19 | NUR ---
ED Nurse Note: Patient walked in to ED c/o sob x 1 wk, pt reports he has hx copd. AAO x4, VSS at this time, patient at 2L via NC at home.
--- NOTE | 2019-03-22 23:36 | Emergency Room Report ---
History of Present Illness General Chief Complaint: Dyspnea/Respdistress Source: Patient, Family Member, Medical Record Present Illness HPI This is a 78-year-old male with a history of smoking. He has history of COPD, oxygen dependent with 2 L nasal cannula. He is chronically short of breath. He said he is increasing shortness of breath the last 2 days. Worse with exertion. Better with rest. Increasing coughing. Increasing oxygen requirement. No fever chills. Coughing is nonproductive nature. 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 Patient denies any chest pain. Denies any other complaint. Allergies: Coded Allergies: No Known Allergies (Unverified , 08/26/13) Patient History Past Medical History: see triage record, old chart reviewed, COPD Past Surgical History: other Pertinent Family History: none Social History: Denies: smoking - History Immunizations: other Reviewed Nursing Documentation: PMH: Agreed; PSxH: Agreed Nursing Documentation-PMH Hx Cardiac Problems: Yes Hx Hypertension: Yes Hx Asthma: Yes Hx COPD: Yes Hx Diabetes: No Hx Cancer: No Hx Gastrointestinal Problems: Yes Hx Neurological Problems: No Review of Systems Eye: Denies: eye pain, blurred vision ENT: Denies: ear pain, nose congestion, throat swelling Respiratory: Reports: cough, shortness of breath Cardiovascular: Denies: chest pain, palpitations Gastrointestinal: Denies: abdominal pain, diarrhea, nausea, vomiting Musculoskeletal: Denies: back pain, joint pain Skin: Denies: rash Neurological: Denies: headache, numbness Endocrine: Denies: increased thirst, increased urine Hematologic/Lymphatic: Denies: easy bruising All Other Systems: negative except mentioned in HPI Physical Exam Vital Signs Date Time Temp Pulse Resp B/P (MAP) Pulse Ox O2 Delivery O2 Flow Rate FiO2 03/22/19 23:06 98.8 83 18 124/71 (88) 98 Nasal Cannula 2.0 03/22/19 23:32 28 Vitals normal Sp02 EP Interpretation: reviewed, normal General Appearance: alert, mild distress, thin, Chronically Ill Head: normocephalic, atraumatic Eyes: bilateral eye PERRL, bilateral eye EOMI ENT: hearing grossly normal, normal pharynx Neck: full range of motion, supple, no meningismus Respiratory: chest non-tender, respiratory distress - Mild, decreased breath sounds, accessory muscle use Cardiovascular #1: regular rate, rhythm, no murmur Gastrointestinal: normal bowel sounds, non tender, no mass, no organomegaly, no bruit, non-distended Musculoskeletal: back normal, gait/station normal, normal range of motion Psychiatric: mood/affect normal Medical Decision Making Diagnostic Impression: Primary Impression: COPD exacerbation Additional Impression: Acute and chronic respiratory failure ([id number]) Qualified Codes: J96.22 - Acute and chronic respiratory failure with hypercapnia ER Course Patient presents with COPD exacerbation. No evidence of pneumonia. He may have a urinary tract infection. Antibiotics given. He felt better after nebulizer treatment and steroid. I contacted Dr. Berrios for admission. EKG Diagnostic Results Rate: normal Rhythm: NSR ST Segments: no acute changes Rhythm Strip Diag. Results EP Interpretation: yes Rate: 83 Rhythm: NSR, no PVC's, no ectopy Chest X-Ray Diagnostic Results Chest X-Ray Diagnostic Results : Chest X-Ray Ordered: Yes # of Views/Limited/Complete: 1 View Indication: Shortness of Breath EP Interpretation: Yes Interpretation: no consolidation, no effusion, no pneumothorax, other - Hyperinflation Impression: Other - COPD Electronically Signed by: Adan Mohr MD Last Vital Signs Date Time Temp Pulse Resp B/P (MAP) Pulse Ox O2 Delivery O2 Flow Rate FiO2 03/22/19 23:32 80 20 97 Nasal Cannula 2.0 28 03/22/19 23:16 98.8 124/71 Status: improved Disposition: ADMITTED INPATIENT Condition: Serious Adan Mohr MD Mar 22, 2019 23:36
[2019-03-23 00:03] LABS: APPEARANCE,URINE CLEAR; BILIRUBIN, URINE NEGATIVE (NEGATIVE); GLUCOSE, URINE (UA) NEGATIVE (NEGATIVE); KETONES,URINE NEGATIVE (NEGATIVE); LEUKOCYTE ESTERASE ,URINE 2+ (NEGATIVE); NITRITE,URINE NEGATIVE (NEGATIVE); PH,URINE 6 (4.5-8.0); PROTEIN,URINE NEGATIVE (NEGATIVE); UROBILINOGEN,URINE NORMAL MG/DL (0.0-1.0)
[2019-03-23 00:03] LABS: BASOPHILS % (AUTO) 1.4 % (0.0-2.0); EOSINOPHILS % (AUTO) 1.8 % (0.0-3.0); HEMATOCRIT 43.3 % (42.0-52.0); HEMOGLOBIN 13.4 G/DL (14.2-18.0); LYMPHOCYTES % (AUTO) 20.7 % (20.0-45.0); MEAN CORPUSCULAR VOLUME 95 FL (80-99); MONOCYTES % (AUTO) 7.7 % (1.0-10.0); NEUTROPHILS % (AUTO) 68.4 % (45.0-75.0); PLATELET COUNT 164 K/UL (150-450); RED BLOOD COUNT 4.56 M/UL (4.70-6.10); RED CELL DISTRIBUTION WIDTH 12.8 % (11.6-14.8); WHITE BLOOD COUNT 5.5 K/UL (4.8-10.8)
[2019-03-23 00:14] LABS: BLOOD UREA NITROGEN 7 mg/dL (7-18); CALCIUM 9.4 MG/DL (8.5-10.1); CHLORIDE 100 MMOL/L (98-107); CREATININE 0.9 MG/DL (0.55-1.30); POTASSIUM 4.6 MMOL/L (3.5-5.1); SODIUM 145 MMOL/L (136-145)
[2019-03-23 00:19] LABS: CARBON DIOXIDE > 45 MMOL/L (21-32)
[2019-03-23 00:20] LABS: COLOR,URINE YELLOW
[2019-03-23 00:25] LABS: ALANINE AMINOTRANSFERASE 11 U/L (12-78); ALBUMIN 3.6 G/DL (3.4-5.0); ALBUMIN/GLOBULIN RATIO 1.2 (1.0-2.7); ALKALINE PHOSPHATASE 45 U/L (46-116); ASPARTATE AMINO TRANSFERASE 13 U/L (15-37); BILIRUBIN,TOTAL 0.4 MG/DL (0.2-1.0)
[2019-03-23] MEDS ORDERED: cefTRIAXone 1 GM in NS 55 ML IVPB ONE (00:30)
--- NOTE | 2019-03-23 01:00 | NUR ---
NURSE NOTES: Received patient from ED, at bedside, patient is awake, alert, oriented x 4, on oxygen 2liters per minute, ambulatory with steady gate, able to verbalize his needs, uses urinal. IV site is clean dry and intact, awaiting admit orders from MD, called twice, CN is aware. Belongings list been reviewed, items accounted for. Oriented to the room, call light is within reach, bed is in low position, locked, alarm is on. Will continue to monitor for safety and comfort.
--- NOTE | 2019-03-23 01:07 | NUR ---
ED Nurse Note: Patient was admited to [facility] due COPD exacerbation. Patient was transfered to the unit via gurney with all belongings. Patient was transfered with Magnesium sulfate at rate 100mL/hr. AAO x4, VSS at this time, skin is warm to touch.
--- NOTE | 2019-03-23 03:43 | NUR ---
NURSE NOTES: RN attempted again to reach MD, voice message left, CN and Nursing equipment maintenance supervisor were notified.
[2019-03-23 04:00] VITALS: BP 127/78
[2019-03-23] MEDS ORDERED: Albuterol ud Inhalation HHN PRN (06:15)
[2019-03-23] MEDS: Albuterol ud Inhalation HHN SCH ×6 (07:00→23:37)
--- NOTE | 2019-03-23 07:17 | NUR ---
HAND-OFF: Report given to Arron ROSE.
[2019-03-23 07:52] VITALS: BP 107/70
[2019-03-23] MEDS: Heparin 5000 units/ml inj SUBQ SCH ×2 (08:14→20:29)
--- NOTE | 2019-03-23 08:41 | NUR ---
NURSE NOTES: pt awake alert, oriented. no distress. denies sob. denies pain. left ac 20g patent and intact. bed in lowest position, locked Addendum: 03/23/19 at 0842 by WILLARD OCNSTANTINO RN call light within reach.
[2019-03-23] MEDS: Wixela 250/50 Inhaler - 60 dose INH SCH ×2 (08:46→22:07)
[2019-03-23] MEDS ORDERED: Solu-MEDROL 125mg Inj IVP SCH (09:00)
--- NOTE | 2019-03-23 09:53 | Pulmonology Progress Note ---
Assessment/Plan Assessment/Plan HPI This is a 78-year-old male with a previous history of smoking. He has history of COPD/Asthma, oxygen dependent with 2 L nasal cannula. He is chronically short of breath. He said he is increasing shortness of breath and cough the last 2 days. Increasing oxygen requirement. No fever chills. Coughing is nonproductive nature. Patient denies any chest pain. Denies any other complaint. Allergies: No Known Allergies Past Medical History: COPD/Asthma, Hypertension, GERD All Other Systems: negative except mentioned in HPI Physical Exam Vital Signs Noted Date Time Temp Pulse Resp B/P (MAP) Pulse Ox O2 Delivery O2 Flow Rate FiO2 03/22/19 23:06 98.8 83 18 124/71 (88) 98 Nasal Cannula 2.0 03/22/19 23:32 28 General Appearance: alert, mild distress, thin, Chronically Ill Head: normocephalic, atraumatic Eyes: bilateral eye PERRL, bilateral eye EOMI ENT: hearing grossly normal, normal pharynx Neck: full range of motion, supple, no meningismus Respiratory: chest non-tender, respiratory distress - Mild, decreased breath sounds Cardiovascular: regular rate, rhythm, no murmur, normal HS1 and HS2 Gastrointestinal: normal bowel sounds, non tender, no mass, no organomegaly, no bruit, non-distended Musculoskeletal: no edema 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 Impression: COPD exacerbation Acute and chronic respiratory failure with hypercapnia Hypertension Plan: HHN Solumedrol - wean as tolerated 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 PPX Monitor labs O2 PRN EKG: Rate: normal Rhythm: NSR ST Segments: no acute changes Chest X-Ray: no consolidation, no effusion, no pneumothorax, other - Hyperinflation Subjective ROS Limited/Unobtainable: No Allergies: Coded Allergies: No Known Allergies (Unverified , 08/26/13) Objective Last 24 Hour Vital Signs Date Time Temp Pulse Resp B/P (MAP) Pulse Ox O2 Delivery O2 Flow Rate FiO2 03/23/19 08:57 Nasal Cannula 2.0 03/23/19 08:49 83 20 99 Nasal Cannula 2.0 03/23/19 08:49 83 20 99 Nasal Cannula 2.0 03/23/19 08:46 82 21 92 Nasal Cannula 2.0 03/23/19 08:46 82 21 92 Nasal Cannula 2.0 03/23/19 07:52 98.7 80 20 107/70 (82) 93 03/23/19 04:00 98.7 98 22 127/78 (94) 03/23/19 01:31 Nasal Cannula 2.0 03/23/19 01:05 98.8 20 124/71 97 Nasal Cannula 2.0 28 03/22/19 23:34 84 20 98 Nasal Cannula 2.0 28 80 20 97 03/22/19 23:32 80 20 97 Nasal Cannula 2.0 28 03/22/19 23:16 83 18 Nasal Cannula 2.0 03/22/19 23:16 98.8 18 124/71 98 Nasal Cannula 2.0 03/22/19 23:06 98.8 83 18 124/71 (88) 98 Nasal Cannula 2.0 Intake and Output 03/22/19 03/23/19 18:59 06:59 Output Total 400 ml Balance -400 ml Output Urine Total 400 ml # Voids 1 # Bowel Movements 1 Laboratory Tests 03/22/19 23:40: White Blood Count 5.5, Red Blood Count 4.56L, Hemoglobin 13.4L, Hematocrit 43.3 , Mean Corpuscular Volume 95, Mean Corpuscular Hemoglobin 29.4, Mean Corpuscular Hemoglobin Concent 31.0L, Red Cell Distribution Width 12.8, Platelet Count 164, Mean Platelet Volume 6.3L, Neutrophils (%) (Auto) 68.4, Lymphocytes (%) (Auto) 20.7, Monocytes (%) (Auto) 7.7, Eosinophils (%) (Auto) 1.8, Basophils (%) (Auto) 1.4, Sodium Level 145, Potassium Level 4.6, Chloride Level 100, Carbon Dioxide Level > 45*H, Blood Urea Nitrogen 7, Creatinine 0.9, Estimat Glomerular Filtration Rate , Glucose Level 98, Calcium Level 9.4, Total Bilirubin 0.4, Aspartate Amino Transf (AST/SGOT) 13L, Alanine Aminotransferase ( ALT/SGPT) 11L, Alkaline Phosphatase 45L, Troponin I 0.000, Pro-B-Type Natriuretic Peptide 110, Total Protein 6.6, Albumin 3.6, Globulin 3.0, Albumin/ Globulin Ratio 1.2 03/22/19 23:47: Urine Color Yellow, Urine Appearance Clear, Urine pH 6, Urine Specific [place] 1.010, Urine Protein Negative, Urine Glucose (UA) Negative, Urine Ketones Negative, Urine Blood 2+H, Urine Nitrite Negative, Urine Bilirubin Negative, Urine Urobilinogen Normal, Urine Leukocyte Esterase 2+H, Urine RBC 2-4H, Urine WBC 5-10H, Urine Squamous Epithelial Cells None, Urine Bacteria Few, Urine Opiates Screen Negative, Urine Barbiturates Screen Negative, Phencyclidine (PCP ) Screen Negative, Urine Amphetamines Screen Negative, Urine Benzodiazepines Screen Negative, Urine Cocaine Screen Negative, Urine Marijuana (THC) Screen Negative Current Medications Medications (Trade) Dose Ordered Sig/Viji Route PRN Reason Start Time Stop Time Status Last Admin Dose Admin Acetaminophen (Tylenol) 650 mg Q4H PRN ORAL Mild Pain/Temp > 100.5 03/23/19 06:15 04/22/19 06:14 Al Hydroxide/Mg Hydroxide (Mylanta) 30 ml Q4H PRN ORAL Constipation 03/23/19 06:15 04/22/19 06:14 Albuterol Sulfate (Proventil) 2.5 mg Q4HRT HHN 03/23/19 07:00 03/28/19 06:59 Albuterol Sulfate (Proventil) 2.5 mg Q4HRT PRN HHN Shortness of Breath 03/23/19 06:15 03/28/19 06:14 Ceftriaxone Sodium 1 gm/ Dextrose 55 ml @ 110 mls/hr Q24H IVPB 03/24/19 01:00 03/31/19 00:59 Heparin Sodium (Porcine) (Heparin 5000 units/ml) 5,000 units EVERY 12 HOURS SUBQ 03/23/19 09:00 04/22/19 08:59 03/23/19 08:14 Methylprednisolone Sodium Succinate (Solu-MEDROL) 60 mg EVERY 12 HOURS IVP 03/23/19 09:00 04/22/19 08:59 03/23/19 08:12 Pantoprazole (Protonix) 40 mg DAILY ORAL 03/23/19 09:00 04/22/19 08:59 03/23/19 08:12 Salmeterol Xinafoate/ Fluticasone (Advair 250/50 Diskus) 1 puffs EVERY 12 HOURS INH 03/23/19 09:00 04/22/19 08:59 03/23/19 08:46 Tiotropium [place] (Spiriva Inhaler) 1 puff DAILY INH 03/23/19 09:00 04/22/19 08:59 03/23/19 08:46 Pedro Bellamy MD Mar 23, 2019 09:53
[2019-03-23 12:00] VITALS: BP 120/70
--- NOTE | 2019-03-23 12:29 | Diagnostic Imaging Report ---
Indication: Shortness of breath Technique: One view of the chest Comparison: 09/16/2017 Findings: Again demonstrated is extensive right upper lobe pleural and parenchymal scarring, with upper retraction of the vitor. Again demonstrated is hyperinflation. Lungs and pleural spaces are otherwise clear. The heart size is normal. The aorta is tortuous and ectatic. Findings are unchanged Impression: Stable chronic changes, as described, including right upper lobe scarring and COPD changes. No definite acute process
--- NOTE | 2019-03-23 14:00 | NUR ---
RD ASSESSMENT & RECOMMENDATIONS SEE CARE ACTIVITY FOR COMPLETE ASSESSMENT DAILY ESTIMATED NEEDS: Needs based on Pulmonary, Underweight/ 64kg 30-35 kcals/kg 6336-4844 total kcals 1-1.5g g protein/kg 64-96 g total protein 25-30 mL/kg 6900-6400 total fluid mLs NUTRITION DIAGNOSIS: Increased kcal/prot needs R/T underweight status, progressive wt loss, clinical condition as evidenced by pt @ 72% IBW w/ low BMI per guidelines, possible wt loss of 29 lbs/17% in 2 years, admitted w/ COPD exacerbation. CURRENT DIET:REGULAR PO DIET RECOMMENDATIONS: Liberalized REGULAR + Snacks BID in b/w meals ADDITIONAL RECOMMENDATIONS: * Calibrated bedscale wt on 03/2354=346wbn -> Weekly wt monitoring * Ensure Enlive BID w/ meals (350kcal/20g prot per bottle) * Snacks BID inb/w meals * Monitor BGs closely while on Solumedrol
--- NOTE | 2019-03-23 15:22 | NUR ---
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 98.7 HR 83 RR 18 B/P 124/71 CO2>45 2L NC IS: SOLU MEDROL IV ALB HHN ATROVENT HHN ADMITTED TO MED/SURG @ 0111 MED/SURG STATUS DCP RETURN HOME
[2019-03-23 16:00] VITALS: BP 122/81
--- NOTE | 2019-03-23 19:18 | NUR ---
HAND-OFF: Report given to CEDRIC ROSE.
--- NOTE | 2019-03-23 19:34 | NUR ---
NURSE NOTES: Received patient in bed, awake, alert, oriented, able to make his needs known, ambulatory with steady gate, no acute distress noted, call light is within reach, bed is locked and lowered, alarm is on. Will continue to monitor for safety and comfort.
[2019-03-23 20:00] VITALS: BP 99/68
[2019-03-23] MEDS: Solu-MEDROL 40mg Inj IVP SCH (20:28)
[2019-03-24] VITALS: BP 99/68
[2019-03-24] MEDS ORDERED: cefTRIAXone 1 GM in D5W 55 ML IVPB SCH (01:00)
[2019-03-24] MEDS: Albuterol ud Inhalation HHN SCH ×5 (03:00→19:26)
[2019-03-24 04:00] VITALS: BP 95/68
--- NOTE | 2019-03-24 07:29 | NUR ---
HAND-OFF: Report given to Kari DEL VALLE..
--- NOTE | 2019-03-24 07:41 | NUR ---
NURSE NOTES: Received patient in bed, awake, alert, oriented, able to make his needs known, ambulatory with steady gait, no c/o pain or acute distress noted, call light is within reach, bed is locked and lowered, alarm is on. Will continue to monitor.
[2019-03-24 08:00] VITALS: BP 95/44
[2019-03-24] MEDS: Solu-MEDROL 40mg Inj IVP SCH ×2 (08:08→20:43)
--- NOTE | 2019-03-24 08:30 | General Progress Note ---
Assessment/Plan Problem List: (1) Respiratory failure, acute ICD Codes: J96.00 - Respiratory failure, acute SNOMED: 28272123 (2) COPD exacerbation (3) Respiratory distress (4) Hypoxia ICD Codes: R09.02 - Hypoxia SNOMED: 894846236 (5) COPD exacerbation ICD Codes: J44.1 - Obstructive chronic bronchitis with exacerbation SNOMED: 597949342 Status: stable, progressing Assessment/Plan: iv steroids resp rx dvt/stress ulcer prophylaxis iv abx Subjective ROS Limited/Unobtainable: No Constitutional: Reports: malaise, weakness HEENT: Reports: no symptoms Cardiovascular: Reports: no symptoms Respiratory: Reports: cough, shortness of breath Gastrointestinal/Abdominal: Reports: no symptoms Genitourinary: Reports: no symptoms Neurologic/Psychiatric: Reports: no symptoms Endocrine: Reports: no symptoms Hematologic/Lymphatic: Reports: no symptoms Allergies: Coded Allergies: No Known Allergies (Unverified , 08/26/13) All Systems: reviewed and negative except above Subjective decreased sob and wheezing. on iv steroids, o2, resp rx. no new complaints. Objective Last 24 Hour Vital Signs Date Time Temp Pulse Resp B/P (MAP) Pulse Ox O2 Delivery O2 Flow Rate FiO2 03/24/19 07:46 96 Nasal Cannula 2.0 28 03/24/19 07:46 84 20 99 Nasal Cannula 2.0 28 83 18 96 03/24/19 04:00 98.5 80 20 95/68 (77) 03/24/19 00:00 98.0 77 21 99/68 (78) 03/23/19 23:48 80 20 99 Nasal Cannula 2.0 28 03/23/19 23:38 82 20 95 03/23/19 22:07 80 20 98 Nasal Cannula 2.0 28 03/23/19 22:05 80 20 98 Nasal Cannula 2.0 28 03/23/19 21:32 Nasal Cannula 2.0 03/23/19 20:00 98.2 83 21 99/68 (78) 03/23/19 19:45 86 20 99 Nasal Cannula 2.0 28 03/23/19 19:35 84 20 97 03/23/19 19:35 97 Nasal Cannula 2.0 28 03/23/19 16:00 98.4 78 20 122/81 (95) 93 03/23/19 14:31 Nasal Cannula 2.0 28 03/23/19 12:00 98.7 80 20 120/70 (87) 93 03/23/19 10:39 Nasal Cannula 2.0 28 03/23/19 08:57 Nasal Cannula 2.0 03/23/19 08:49 83 20 99 Nasal Cannula 2.0 28 03/23/19 08:49 83 20 99 Nasal Cannula 2.0 28 03/23/19 08:46 82 21 92 Nasal Cannula 2.0 28 03/23/19 08:46 82 21 92 Nasal Cannula 2.0 28 Intake and Output 03/23/19 03/24/19 19:00 07:00 Intake Total 600 ml Balance 600 ml Intake Oral 600 ml # Voids 2 Height (Feet): 6 Height (Inches): 3.00 Weight (Pounds): 169 General Appearance: WD/WN, alert Neck: supple Cardiovascular: normal rate Respiratory/Chest: chest wall non-tender, expiratory wheezing Abdomen: normal bowel sounds, non tender, soft, no organomegaly Edema: no edema noted Arm (L), no edema noted Arm (R), no edema noted Leg (L), no edema noted Leg (R), no edema noted Pedal (L), no edema noted Pedal (R), no edema noted Generalized Robert Durham MD Mar 24, 2019 08:30
[2019-03-24] MEDS: Heparin 5000 units/ml inj SUBQ SCH ×2 (08:38→20:51)
--- NOTE | 2019-03-24 09:30 | History and Physical Report ---
DATE OF ADMISSION: 03/22/2019 CHIEF COMPLAINT: COPD/asthma exacerbation. HISTORY OF PRESENT ILLNESS: The patient is a pleasant 78-year-old male. He has a history of chronic hypoxemia and COPD presented with complaints of worsening shortness of breath. He was diagnosed with COPD/asthma exacerbation. He is now admitted. He is currently on intravenous steroids and breathing treatments [id number]. The patient denies any fevers or chills. He has had a nonproductive cough. Denies any chest pain. PAST MEDICAL HISTORY: As above. PAST SURGICAL HISTORY: None. CURRENT MEDICATIONS: Reconciled and reviewed. ALLERGIES: None. FAMILY HISTORY: None. SOCIAL HISTORY: Negative for tobacco, ethanol, or drugs. REVIEW OF SYSTEMS: GENERAL: No fevers or chills. HEENT: No headaches or visual changes. CARDIOPULMONARY: No chest pain. Positive shortness of breath. GASTROINTESTINAL: No nausea or vomiting. GENITOURINARY: No urgency or frequency. MUSCULOSKELETAL: No joint pain or swelling. NEUROLOGIC: No evidence of seizures. PHYSICAL EXAMINATION: VITAL SIGNS: Temperature 98, pulse 80, respirations 20, and blood pressure is 100/60. GENERAL: The patient is well developed, thin male, in no apparent distress. HEART: Regular rate and rhythm. LUNGS: Significant for diminished breath sounds with few wheezes. ABDOMEN: Soft, nontender, nondistended. EXTREMITIES: Without clubbing, cyanosis, or edema. LABORATORY DATA: White count 5, hemoglobin 13, hematocrit 43, platelets of 164. Sodium 145, potassium 4.6, carbon dioxide greater than 45, creatinine was 0.9. ASSESSMENT: This is a 78-year-old male with a history of COPD admitted with complaints of COPD exacerbation. PLAN: 1. IV steroids. 2. Respiratory treatments. 3. Intravenous antibiotics. 4. Monitor chest x-ray. 5. Check blood gas. 6. DVT and stress ulcer prophylaxis. Robert Durham M.D. DR: Pantera JOB#: [id number] CC:
--- NOTE | 2019-03-24 10:02 | Pulmonology Progress Note ---
Assessment/Plan Assessment/Plan COPD with acute exacerbation chronic respiratory failure hypercapnia pulmonary hypertension malnutrition debility hypoxemia PLAN care as is obtain abg trilogy for home use nebs iv solumedrol d/w patient chronic oxygen therapy impression, plan, and exam edited and reviewed in detail care discussed with RN Subjective Allergies: Coded Allergies: No Known Allergies (Unverified , 08/26/13) Subjective care noted still with sob care discussed Objective Last 24 Hour Vital Signs Date Time Temp Pulse Resp B/P (MAP) Pulse Ox O2 Delivery O2 Flow Rate FiO2 03/24/19 08:57 Nasal Cannula 2.0 03/24/19 08:00 97.6 73 20 95/44 (61) 03/24/19 07:46 96 Nasal Cannula 2.0 28 03/24/19 07:46 84 20 99 Nasal Cannula 2.0 28 83 18 96 03/24/19 04:00 98.5 80 20 95/68 (77) 03/24/19 00:00 98.0 77 21 99/68 (78) 03/23/19 23:48 80 20 99 Nasal Cannula 2.0 28 03/23/19 23:38 82 20 95 03/23/19 22:07 80 20 98 Nasal Cannula 2.0 28 03/23/19 22:05 80 20 98 Nasal Cannula 2.0 28 03/23/19 21:32 Nasal Cannula 2.0 03/23/19 20:00 98.2 83 21 99/68 (78) 03/23/19 19:45 86 20 99 Nasal Cannula 2.0 28 03/23/19 19:35 84 20 97 03/23/19 19:35 97 Nasal Cannula 2.0 28 03/23/19 16:00 98.4 78 20 122/81 (95) 93 03/23/19 14:31 Nasal Cannula 2.0 28 03/23/19 12:00 98.7 80 20 120/70 (87) 93 03/23/19 10:39 Nasal Cannula 2.0 28 Intake and Output 03/23/19 03/24/19 18:59 06:59 Intake Total 600 ml Balance 600 ml Intake Oral 600 ml # Voids 2 Objective WDWN NAD on oxygen poor breath sounds bilaterally without rhonchi or wheeze [id number] without MRG NABS nontender no HSM no CE clubbing nonfocal sob+ Current Medications Medications (Trade) Dose Ordered Sig/Viji Route PRN Reason Start Time Stop Time Status Last Admin Dose Admin Acetaminophen (Tylenol) 650 mg Q4H PRN ORAL Mild Pain/Temp > 100.5 03/23/19 06:15 04/22/19 06:14 Al Hydroxide/Mg Hydroxide (Mylanta) 30 ml Q4H PRN ORAL Constipation 03/23/19 06:15 04/22/19 06:14 Albuterol Sulfate (Proventil) 2.5 mg Q4HRT HHN 03/23/19 07:00 03/28/19 06:59 03/24/19 07:46 Albuterol Sulfate (Proventil) 2.5 mg Q4HRT PRN HHN Shortness of Breath 03/23/19 06:15 03/28/19 06:14 Ceftriaxone Sodium 1 gm/ Dextrose 55 ml @ 110 mls/hr Q24H IVPB 03/24/19 01:00 03/31/19 00:59 03/24/19 01:17 Heparin Sodium (Porcine) (Heparin 5000 units/ml) 5,000 units EVERY 12 HOURS SUBQ 03/23/19 09:00 04/22/19 08:59 03/24/19 08:38 Methylprednisolone Sodium Succinate (Solu-MEDROL) 40 mg EVERY 12 HOURS IVP 03/23/19 21:00 04/22/19 08:59 03/24/19 08:08 Pantoprazole (Protonix) 40 mg DAILY ORAL 03/23/19 09:00 04/22/19 08:59 03/24/19 08:31 Salmeterol Xinafoate/ Fluticasone (Advair 250/50 Diskus) 1 puffs EVERY 12 HOURS INH 03/23/19 09:00 04/22/19 08:59 03/23/19 22:07 Tiotropium [place] (Spiriva Inhaler) 1 puff DAILY INH 03/23/19 09:00 04/22/19 08:59 03/23/19 08:46 Kenneth Berrios MD Mar 24, 2019 10:02
[2019-03-24] MEDS: Wixela 250/50 Inhaler - 60 dose INH SCH ×2 (10:23→21:58)
--- NOTE | 2019-03-24 10:57 | NUR ---
NURSE NOTES: called and left voicemail to Dr. Berrios's office number re: ABG result. await for a call back. Addendum: 03/24/19 at 1107 by WILLARD CONSTANTINO RN RECEIVED ORDER FROM DR BERRIOS RE BIPAP 22/02 AND TRANSFER TO [facility] MADE AWARE. AWAITING BED. PT IS 91% ON 2LNC , NO SOB AT THIS TIME.
--- NOTE | 2019-03-24 11:19 | NUR ---
NURSE NOTES: NEW ORDER OBTAINED AND CARRIED OUT FROM DR MCARTHUR. AWAITING FOR ROOM ASSIGN. FROM HOUSE SUP
[2019-03-24] MEDS ORDERED: Albuterol ud Inhalation HHN PRN (11:45)
--- NOTE | 2019-03-24 11:46 | NUR ---
NURSE NOTES: PATIENT TRANSFERRED TO [facility] IN ROOM 239-2 RECEIVED BY MILTON ARCE. PERSONAL BELONGINGS REVIEWED AND NOTED. SKIN ASSESSED WITH RECEIVING NURSE. BIPAP BEING SET UP BY ROSA BRAVO. PATIENT IS VERBALLY RESPONSIVE. NO C/O PAIN/DISCOMFORT. PATIENT REFRAINED STAFF FROM CALLING HIS . RECOMMENDING PMD TO ORDER LABS FOR TODAY AND NO NEW ORDER OBTAINED.
--- NOTE | 2019-03-24 11:47 | NUR ---
NURSE NOTES: PT and report received from MILTON Pierce. PT received 2L portable O2 tank, no respiratory distress noted, VS stable. PT placed on BIPAP 15/8 28%, saturating at 98%. R-AC 22g patent, flushes well, PT is A/O x 4, cooperative, follows commands. No wounds noted upon transfer, visually checked with LUCIE Davies. PT belongings at bedside, all items present and accounted for. Will continue to monitor PT, and follow through with plan of care.
[2019-03-24 12:00] VITALS: BP 113/64
--- NOTE | 2019-03-24 13:07 | Cardiology Report ---
APPROVED REPORT EKG Measurement Heart [id number] Normal sinus rhythm Right atrial enlargement Abnormal ECG
--- NOTE | 2019-03-24 13:30 | NUR ---
NURSE NOTES: PT placed on 3L-NC so he can eat lunch, VS stable, no respiratory distress noted. Will continue to monitor PT.
--- NOTE | 2019-03-24 14:46 | NUR ---
CASE MANAGEMENT: REVIEW 03/24/2019 SI:COPD EXACERBATION. T 98.2 HR 80 RR 18 B/P 113/64 SATS 98% ON 3L/BIPAP NO LABS TODAY IS:SOLU MEDROL IV Q12H PROTONIX PO QD SPIRIVA INH QD CEFTRIAXONE IV Q24H SDU
--- NOTE | 2019-03-24 15:21 | NUR ---
NURSE NOTES: PT wallet that includes (3) $100 bills, ss card, [place] signed over to be placed in safe. Security and Nurse Expressive Therapist Hilda, present to verify transfer to security. PT valuable deposit pink slip placed in PT folder, LEX # [id number]. PT aware of transfer to safe and CN Keke made aware. Will continue to monitor PT.
[2019-03-24 16:00] VITALS: BP 100/47
--- NOTE | 2019-03-24 19:05 | NUR ---
HAND-OFF: Report and PT given to MILTON Ryan. PT remains on BIPAP during change of shift, VS stable, no respiratory distress noted. PT A/O x 4.
--- NOTE | 2019-03-24 19:33 | NUR ---
NURSE NOTES: Report received from MILTON Mcnair. Observed pt lying in the bed. A/O x4, denies any distress. On bipap 22/02, 28%. SR on nuclear monitoring technician. No acute distress noted at this time. IV on R AC 22G, SL. Bed in the lowest position. Side rails up x3. Will continue to monitor.
--- NOTE | 2019-03-24 19:33 | NUR ---
RESPIRATORY NOTE: Received pt. on 2l nc. Charge Nurse called and ask RT to put pt. on BIPAP. BIPAP settings are: 15/8, rate of 14, FI02 30%. No respiratory distress noted, pt. sP02 @ 100%. BIPAP plugged on red outlet. Will continue to monitor pt.
[2019-03-24 20:00] VITALS: BP 107/65
[2019-03-25] VITALS: BP 108/55
--- NOTE | 2019-03-25 01:00 | NUR ---
NURSE NOTES: Observed pt sleeping in the bed. On bipap with no distress noted. SR on cst. will continue to monitor.
[2019-03-25] MEDS: cefTRIAXone 1 GM in D5W 55 ML IVPB SCH (01:42)
[2019-03-25] MEDS: Albuterol ud Inhalation HHN SCH ×6 (03:20→22:41)
--- NOTE | 2019-03-25 03:50 | NUR ---
HAND-OFF: Report given to MILTON Dior.
--- NOTE | 2019-03-25 03:51 | NUR ---
NURSE NOTES: Report received from Naya RN JACE. pt remains stable. vital signs stable. pt is sleeping right now. pt threat monitoring analyst shows NSR with no other abnormalities noted. pt is currently on the BiPAP with reported settings 15/8, and pt does not appear in any resp distress. bed low, locked, armed, call light within reach. will continue plan of care.
[2019-03-25 04:00] VITALS: BP 116/65
--- NOTE | 2019-03-25 07:00 | NUR ---
NURSE NOTES: received patient report from naren moser. patient is on bed, asleep. on bipap @ prescribed settings. bed is low and locked for safet. will follow plan of care.
--- NOTE | 2019-03-25 07:11 | NUR ---
HAND-OFF: Report given to Mena ROSE JACE. pt remains stable.
[2019-03-25 08:00] VITALS: BP 103/56
[2019-03-25] MEDS: Solu-MEDROL 40mg Inj IVP SCH ×2 (08:14→20:13)
[2019-03-25] MEDS: Heparin 5000 units/ml inj SUBQ SCH ×2 (08:16→20:17)
--- NOTE | 2019-03-25 08:46 | Pulmonology Progress Note ---
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 Patient has chronic respiratory failure , hypoxemia and end stage COPD. considered BIPAP but will order Trilogy NIV. Trilogy has AVAPS AE and tidal volume, which will reduced CO2 retention and the work of breathing Subjective Allergies: Coded Allergies: No Known Allergies (Unverified , 08/26/13) Subjective care noted now on BIPAP ABG improved care discussed Objective Last 24 Hour Vital Signs Date Time Temp Pulse Resp B/P (MAP) Pulse Ox O2 Delivery O2 Flow Rate FiO2 03/25/19 08:00 Bi-pap 03/25/19 08:00 28 03/25/19 08:00 97.9 68 22 103/56 (72) 97 03/25/19 07:08 67 14 99 Bi-Pap 30 68 14 99 03/25/19 07:04 68 14 100 Facial 30 03/25/19 07:04 100 Bi-Pap 30 03/25/19 04:34 30 17 99 Facial 30 03/25/19 04:00 75 03/25/19 04:00 98.9 78 18 116/65 (82) 98 03/25/19 04:00 Bi-pap 03/25/19 04:00 28 03/25/19 03:20 80 16 100 Facial 30 82 16 100 Bi-Pap 30 03/25/19 00:00 Bi-pap 03/25/19 00:00 98.6 83 18 108/55 (72) 97 03/25/19 00:00 88 03/24/19 23:05 57 17 98 Facial 30 03/24/19 22:04 83 18 98 Bi-Pap 30 03/24/19 21:57 83 23 99 Bi-Pap 30 03/24/19 21:53 83 17 98 Facial 30 03/24/19 20:00 84 03/24/19 20:00 97.5 93 18 107/65 (79) 99 03/24/19 20:00 Bi-pap 03/24/19 20:00 28 03/24/19 19:32 100 Bi-Pap 30 03/24/19 19:29 81 15 100 Facial 30 84 16 100 Bi-Pap 30 03/24/19 17:17 77 17 96 Facial 30 89 18 100 03/24/19 16:00 97.3 80 18 100/47 (64) 99 03/24/19 16:00 Bi-pap 03/24/19 15:57 83 03/24/19 15:01 82 22 99 Facial 30 89 18 100 03/24/19 13:30 3.0 03/24/19 12:00 98.2 80 18 113/64 (80) 98 03/24/19 12:00 28 03/24/19 12:00 Bi-pap 03/24/19 12:00 85 03/24/19 11:45 89 27 98 Facial 30 03/24/19 11:25 82 20 97 Nasal Cannula 2.0 28 82 18 94 03/24/19 10:25 89 20 93 Nasal Cannula 2.0 28 03/24/19 10:25 89 20 92 Nasal Cannula 2.0 28 03/24/19 10:25 90 20 94 Nasal Cannula 2.0 28 03/24/19 10:25 89 18 93 Nasal Cannula 2.0 28 03/24/19 08:57 Nasal Cannula 2.0 Intake and Output 03/24/19 03/25/19 19:00 07:00 Intake Total 740 ml Output Total 700 ml 600 ml Balance 40 ml -600 ml Intake Oral 740 ml Output Urine Total 700 ml 600 ml # Voids 2 Objective WDWN NAD on oxygen /BIPAP poor breath sounds bilaterally without rhonchi or wheeze [id number] without MRG NABS nontender no HSM no CE clubbing nonfocal sob slightly better Laboratory Tests 03/24/19 10:02: Arterial Blood pH 7.235*L, Arterial Blood Partial Pressure CO2 119.4*H, Arterial Blood Partial Pressure O2 58.1L, Arterial Blood HCO3 49.4*H, Arterial Blood Oxygen Saturation 88.6*L, Arterial Blood Base Excess 16.4*H, Gilbert Test Positive 03/24/19 12:52: Arterial Blood pH 7.329L, Arterial Blood Partial Pressure CO2 88.9*H, Arterial Blood Partial Pressure O2 71.2L, Arterial Blood HCO3 45.7*H, Arterial Blood Oxygen Saturation 94.2L, Arterial Blood Base Excess 15.6*H, Gilbert Test Positive Current Medications Medications (Trade) Dose Ordered Sig/Viji Route PRN Reason Start Time Stop Time Status Last Admin Dose Admin Acetaminophen (Tylenol) 650 mg Q4H PRN ORAL Mild Pain/Temp > 100.5 03/24/19 11:45 04/22/19 11:44 Al Hydroxide/Mg Hydroxide (Mylanta) 30 ml Q4H PRN ORAL Constipation 03/24/19 11:46 04/22/19 11:45 Albuterol Sulfate (Proventil) 2.5 mg Q4H PRN HHN Shortness of Breath 03/24/19 11:45 03/29/19 11:44 Albuterol Sulfate (Proventil) 2.5 mg Q4HRT HHN 03/24/19 15:00 03/28/19 06:59 03/25/19 07:17 Ceftriaxone Sodium 1 gm/ Dextrose 55 ml @ 110 mls/hr Q24H IVPB 03/25/19 01:00 03/31/19 00:59 03/25/19 01:42 Heparin Sodium (Porcine) (Heparin 5000 units/ml) 5,000 units EVERY 12 HOURS SUBQ 03/24/19 21:00 04/22/19 08:59 03/25/19 08:16 Methylprednisolone Sodium Succinate (Solu-MEDROL) 40 mg EVERY 12 HOURS IVP 03/24/19 21:00 04/22/19 08:59 03/25/19 08:14 Pantoprazole (Protonix) 40 mg DAILY ORAL 03/25/19 09:00 04/22/19 08:59 03/25/19 08:14 Salmeterol Xinafoate/ Fluticasone (Advair 250/50 Diskus) 1 puffs EVERY 12 HOURS INH 03/24/19 21:00 04/22/19 08:59 03/24/19 21:58 Tiotropium [place] (Spiriva Inhaler) 1 puff DAILY INH 03/25/19 09:00 04/22/19 08:59 Kenneth Berrios MD Mar 25, 2019 08:46
[2019-03-25] MEDS: Wixela 250/50 Inhaler - 60 dose INH SCH ×2 (08:59→19:44)
--- NOTE | 2019-03-25 10:29 | General Progress Note ---
Assessment/Plan Problem List: (1) Respiratory failure, acute ICD Codes: J96.00 - Respiratory failure, acute SNOMED: 08640075 (2) COPD exacerbation (3) Respiratory distress (4) Hypoxia ICD Codes: R09.02 - Hypoxia SNOMED: 607874043 (5) COPD exacerbation ICD Codes: J44.1 - Obstructive chronic bronchitis with exacerbation SNOMED: 913000074 Status: stable, progressing Assessment/Plan: iv steroids resp rx dvt/stress ulcer prophylaxis iv abx bipap Subjective ROS Limited/Unobtainable: No Constitutional: Reports: malaise, weakness HEENT: Reports: no symptoms Cardiovascular: Reports: no symptoms Respiratory: Reports: cough, shortness of breath Gastrointestinal/Abdominal: Reports: no symptoms Genitourinary: Reports: no symptoms Neurologic/Psychiatric: Reports: no symptoms Endocrine: Reports: no symptoms Hematologic/Lymphatic: Reports: no symptoms Allergies: Coded Allergies: No Known Allergies (Unverified , 08/26/13) All Systems: reviewed and negative except above Subjective transferred to fermín for resp acidosis. currently on bipap. no chest pain less sob this morning. Objective Last 24 Hour Vital Signs Date Time Temp Pulse Resp B/P (MAP) Pulse Ox O2 Delivery O2 Flow Rate FiO2 03/25/19 10:08 78 14 97 Nasal Cannula 4.0 36 03/25/19 10:08 80 16 97 Nasal Cannula 4.0 36 03/25/19 09:03 83 18 96 Nasal Cannula 4.0 36 03/25/19 08:55 81 14 99 Nasal Cannula 4.0 36 03/25/19 08:00 Bi-pap 03/25/19 08:00 28 03/25/19 08:00 97.9 68 22 103/56 (72) 97 03/25/19 07:45 72 03/25/19 07:08 67 14 99 Bi-Pap 30 68 14 99 03/25/19 07:04 68 14 100 Facial 30 03/25/19 07:04 100 Bi-Pap 30 03/25/19 04:34 30 17 99 Facial 30 03/25/19 04:00 75 03/25/19 04:00 98.9 78 18 116/65 (82) 98 03/25/19 04:00 Bi-pap 03/25/19 04:00 28 03/25/19 03:20 80 16 100 Facial 30 82 16 100 Bi-Pap 30 03/25/19 00:00 Bi-pap 03/25/19 00:00 98.6 83 18 108/55 (72) 97 03/25/19 00:00 88 03/24/19 23:05 57 17 98 Facial 30 03/24/19 22:04 83 18 98 Bi-Pap 30 03/24/19 21:57 83 23 99 Bi-Pap 30 03/24/19 21:53 83 17 98 Facial 30 03/24/19 20:00 84 03/24/19 20:00 97.5 93 18 107/65 (79) 99 03/24/19 20:00 Bi-pap 03/24/19 20:00 28 03/24/19 19:32 100 Bi-Pap 30 03/24/19 19:29 81 15 100 Facial 30 84 16 100 Bi-Pap 30 03/24/19 17:17 77 17 96 Facial 30 89 18 100 03/24/19 16:00 97.3 80 18 100/47 (64) 99 03/24/19 16:00 Bi-pap 03/24/19 15:57 83 03/24/19 15:01 82 22 99 Facial 30 89 18 100 03/24/19 13:30 3.0 03/24/19 12:00 98.2 80 18 113/64 (80) 98 03/24/19 12:00 28 03/24/19 12:00 Bi-pap 03/24/19 12:00 85 03/24/19 11:45 89 27 98 Facial 30 03/24/19 11:25 82 20 97 Nasal Cannula 2.0 28 82 18 94 03/24/19 10:25 89 20 93 Nasal Cannula 2.0 28 03/24/19 10:25 89 20 92 Nasal Cannula 2.0 28 03/24/19 10:25 90 20 94 Nasal Cannula 2.0 28 03/24/19 10:25 89 18 93 Nasal Cannula 2.0 28 Intake and Output 03/24/19 03/25/19 19:00 07:00 Intake Total 740 ml Output Total 700 ml 600 ml Balance 40 ml -600 ml Intake Oral 740 ml Output Urine Total 700 ml 600 ml # Voids 2 Laboratory Tests 03/24/19 12:52: Arterial Blood pH 7.329L, Arterial Blood Partial Pressure CO2 88.9*H, Arterial Blood Partial Pressure O2 71.2L, Arterial Blood HCO3 45.7*H, Arterial Blood Oxygen Saturation 94.2L, Arterial Blood Base Excess 15.6*H, Gilbert Test Positive Height (Feet): 6 Height (Inches): 3.00 Weight (Pounds): 169 Objective General Appearance: WD/WN, alert Neck: supple Cardiovascular: normal rate Respiratory/Chest: chest wall non-tender, expiratory wheezing Abdomen: normal bowel sounds, non tender, soft, no organomegaly Edema: no edema noted Arm (L), no edema noted Arm (R), no edema noted Leg (L), no edema noted Leg (R), no edema noted Pedal (L), no edema noted Pedal (R), no edema noted Generalized Robert Durham MD Mar 25, 2019 10:29
[2019-03-25 11:49] VITALS: BP 104/50
--- NOTE | 2019-03-25 15:23 | NUR ---
NURSE NOTES: patient refused to be cleaned. stated that he is ok. will continue to monitor.
[2019-03-25 16:00] VITALS: BP 103/50
--- NOTE | 2019-03-25 19:13 | NUR ---
HAND-OFF: Report given to naren moser.
--- NOTE | 2019-03-25 19:21 | NUR ---
NURSE NOTES: Pt report received from Ovi Encarnacion RN JACE. pt remains stable, vital signs stable. pt is alert is oriented times 4, knows how to follow commands. pt traffic monitor specialist shows NSR, no Signs symptoms of distress. pt is on room air and able to sat at 99%, no signs symptoms of distress. pt bed is low, locked, armed, bed rails up times 3, call light within reach. will continue plan of care.
[2019-03-25 20:00] VITALS: BP 108/79
[2019-03-26] VITALS: BP 95/65
[2019-03-26] MEDS: cefTRIAXone 1 GM in D5W 55 ML IVPB SCH (00:17)
[2019-03-26] MEDS: Albuterol ud Inhalation HHN SCH ×6 (02:59→22:58)
[2019-03-26 04:00] VITALS: BP 101/62
--- NOTE | 2019-03-26 04:00 | NUR ---
NURSE NOTES: Pt refused Pulse oximetry (O2) monitoring. pt refused continuous ET CO2 monitoring. pt appears asymptomatic. vital signs stable.
--- NOTE | 2019-03-26 07:30 | NUR ---
HAND-OFF: Report given to Hilda ROSE JACE. Pt remains stable.
--- NOTE | 2019-03-26 07:30 | NUR ---
Received patient from RN Ovi ,patient on 2 liters O2 nasal cannula,breathing easy,resting
[2019-03-26] MEDS: Wixela 250/50 Inhaler - 60 dose INH SCH ×2 (07:47→21:09)
[2019-03-26 08:00] VITALS: BP 115/55
--- NOTE | 2019-03-26 08:37 | Pulmonology Progress Note ---
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 Patient has chronic respiratory failure , hypoxemia and end stage COPD. considered BIPAP but will order Trilogy NIV. Trilogy has AVAPS AE and tidal volume, which will reduced CO2 retention and the work of breathing Subjective Allergies: Coded Allergies: No Known Allergies (Unverified , 08/26/13) Subjective care noted now off BIPAP some mild improvement care discussed Objective Last 24 Hour Vital Signs Date Time Temp Pulse Resp B/P (MAP) Pulse Ox O2 Delivery O2 Flow Rate FiO2 03/26/19 07:50 81 20 98 Nasal Cannula 2.0 28 03/26/19 07:50 81 20 98 Nasal Cannula 2.0 28 03/26/19 07:45 65 20 91 Nasal Cannula 2.0 28 03/26/19 07:45 65 20 91 Nasal Cannula 2.0 28 03/26/19 07:41 91 Nasal Cannula 2.0 28 03/26/19 07:41 70 20 99 Nasal Cannula 2.0 28 65 20 91 03/26/19 04:00 98.2 74 18 101/62 (75) 99 03/26/19 04:00 2.0 03/26/19 04:00 75 03/26/19 04:00 Nasal Cannula 2.0 03/26/19 03:00 82 16 99 Nasal Cannula 2.0 79 16 97 03/26/19 00:35 83 18 97 Facial 30 03/26/19 00:00 Nasal Cannula 2.0 03/26/19 00:00 28 03/26/19 00:00 78 03/26/19 00:00 98.4 96 19 95/65 (75) 99 03/25/19 23:28 79 17 98 Facial 30 03/25/19 22:42 88 18 99 Nasal Cannula 2.0 28 87 18 98 03/25/19 20:00 98.9 85 18 108/79 (89) 99 03/25/19 20:00 2.0 03/25/19 20:00 Nasal Cannula 2.0 03/25/19 20:00 85 03/25/19 19:49 79 17 99 Nasal Cannula 2.0 28 78 18 99 03/25/19 19:48 79 18 99 Nasal Cannula 2.0 28 03/25/19 19:46 98 Nasal Cannula 2.0 28 03/25/19 19:44 79 18 98 Nasal Cannula 2.0 28 03/25/19 16:00 Nasal Cannula 2.0 03/25/19 16:00 98.7 86 19 103/50 (67) 99 03/25/19 16:00 28 03/25/19 15:23 82 03/25/19 15:06 83 14 99 Nasal Cannula 2.0 28 79 14 99 03/25/19 12:00 28 03/25/19 12:00 Nasal Cannula 2.0 03/25/19 11:49 99.7 83 21 104/50 (68) 99 03/25/19 11:47 85 03/25/19 11:04 78 16 99 Nasal Cannula 36 79 16 99 03/25/19 10:08 78 14 97 Nasal Cannula 4.0 36 03/25/19 10:08 80 16 97 Nasal Cannula 4.0 36 03/25/19 09:03 83 18 96 Nasal Cannula 4.0 36 03/25/19 08:55 81 14 99 Nasal Cannula 4.0 36 Intake and Output 03/25/19 03/26/19 19:00 07:00 Intake Total 550 ml 110 ml Output Total 950 ml 1100 ml Balance -400 ml -990 ml Intake Oral 550 ml IV Total 110 ml Output Urine Total 950 ml 1100 ml # Bowel Movements 4 Objective WDWN NAD on oxygen /BIPAP as needed poor breath sounds bilaterally without rhonchi or wheeze [id number] without MRG NABS nontender no HSM no CE clubbing nonfocal alert sob Current Medications Medications (Trade) Dose Ordered Sig/Viji Route PRN Reason Start Time Stop Time Status Last Admin Dose Admin Acetaminophen (Tylenol) 650 mg Q4H PRN ORAL Mild Pain/Temp > 100.5 03/24/19 11:45 04/22/19 11:44 Al Hydroxide/Mg Hydroxide (Mylanta) 30 ml Q4H PRN ORAL Constipation 03/24/19 11:46 04/22/19 11:45 03/25/19 16:56 Albuterol Sulfate (Proventil) 2.5 mg Q4H PRN HHN Shortness of Breath 03/24/19 11:45 03/29/19 11:44 Albuterol Sulfate (Proventil) 2.5 mg Q4HRT HHN 03/24/19 15:00 03/28/19 06:59 03/26/19 07:47 Ceftriaxone Sodium 1 gm/ Dextrose 55 ml @ 110 mls/hr Q24H IVPB 03/25/19 01:00 03/31/19 00:59 03/26/19 00:17 Heparin Sodium (Porcine) (Heparin 5000 units/ml) 5,000 units EVERY 12 HOURS SUBQ 03/24/19 21:00 04/22/19 08:59 03/25/19 20:17 Methylprednisolone Sodium Succinate (Solu-MEDROL) 40 mg EVERY 12 HOURS IVP 03/24/19 21:00 04/22/19 08:59 03/25/19 20:13 Pantoprazole (Protonix) 40 mg DAILY ORAL 03/25/19 09:00 04/22/19 08:59 03/25/19 08:14 Salmeterol Xinafoate/ Fluticasone (Advair 250/50 Diskus) 1 puffs EVERY 12 HOURS INH 03/24/19 21:00 04/22/19 08:59 03/26/19 07:47 Tiotropium [place] (Spiriva Inhaler) 1 puff DAILY INH 03/25/19 09:00 04/22/19 08:59 03/26/19 07:48 Kenneth Berrios MD Mar 26, 2019 08:37
[2019-03-26] MEDS: Solu-MEDROL 40mg Inj IVP SCH (09:40)
[2019-03-26] MEDS: Heparin 5000 units/ml inj SUBQ SCH ×2 (09:42→20:58)
[2019-03-26 12:00] VITALS: BP 106/57
--- NOTE | 2019-03-26 12:30 | NUR ---
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 96.8 HR 78 RR 17 B/P 115/55 NC 2L IS: SOLU MEDROL IV SPIRIVA HHN ALB HHN HEPARIN SUBC STEP DOWN STATUS
--- NOTE | 2019-03-26 14:11 | General Progress Note ---
Assessment/Plan Problem List: (1) Respiratory failure, acute ICD Codes: J96.00 - Respiratory failure, acute SNOMED: 87151229 (2) COPD exacerbation (3) Respiratory distress (4) Hypoxia ICD Codes: R09.02 - Hypoxia SNOMED: 146939552 (5) COPD exacerbation ICD Codes: J44.1 - Obstructive chronic bronchitis with exacerbation SNOMED: 076170620 Status: stable, progressing Assessment/Plan: iv steroids- wean per pulm resp rx dvt/stress ulcer prophylaxis iv abx bipap at night Subjective ROS Limited/Unobtainable: No Constitutional: Reports: malaise, weakness HEENT: Reports: no symptoms Cardiovascular: Reports: no symptoms Respiratory: Reports: cough Gastrointestinal/Abdominal: Reports: no symptoms Genitourinary: Reports: no symptoms Neurologic/Psychiatric: Reports: no symptoms Endocrine: Reports: no symptoms Hematologic/Lymphatic: Reports: no symptoms Allergies: Coded Allergies: No Known Allergies (Unverified , 08/26/13) All Systems: reviewed and negative except above Subjective no events. off bipap currently used bipap for half of the night. feels better today. no chest pain less sob. Objective Last 24 Hour Vital Signs Date Time Temp Pulse Resp B/P (MAP) Pulse Ox O2 Delivery O2 Flow Rate FiO2 03/26/19 12:00 Nasal Cannula 2.0 03/26/19 12:00 96.8 84 20 106/57 (73) 96 03/26/19 12:00 82 03/26/19 11:18 71 20 99 Nasal Cannula 2.0 28 73 20 96 03/26/19 08:00 Nasal Cannula 2.0 03/26/19 08:00 96.8 78 17 115/55 (75) 91 03/26/19 08:00 79 03/26/19 07:50 81 20 98 Nasal Cannula 2.0 28 03/26/19 07:50 81 20 98 Nasal Cannula 2.0 28 03/26/19 07:45 65 20 91 Nasal Cannula 2.0 28 03/26/19 07:45 65 20 91 Nasal Cannula 2.0 28 03/26/19 07:41 91 Nasal Cannula 2.0 28 03/26/19 07:41 70 20 99 Nasal Cannula 2.0 28 65 20 91 03/26/19 04:00 98.2 74 18 101/62 (75) 99 03/26/19 04:00 2.0 03/26/19 04:00 75 03/26/19 04:00 Nasal Cannula 2.0 03/26/19 03:00 82 16 99 Nasal Cannula 2.0 28 79 16 97 03/26/19 00:35 83 18 97 Facial 30 03/26/19 00:00 Nasal Cannula 2.0 03/26/19 00:00 28 03/26/19 00:00 78 03/26/19 00:00 98.4 96 19 95/65 (75) 99 03/25/19 23:28 79 17 98 Facial 30 03/25/19 22:42 88 18 99 Nasal Cannula 2.0 28 87 18 98 03/25/19 20:00 98.9 85 18 108/79 (89) 99 03/25/19 20:00 2.0 03/25/19 20:00 Nasal Cannula 2.0 03/25/19 20:00 85 03/25/19 19:49 79 17 99 Nasal Cannula 2.0 78 18 99 03/25/19 19:48 79 18 99 Nasal Cannula 2.0 03/25/19 19:46 98 Nasal Cannula 2.0 28 03/25/19 19:44 79 18 98 Nasal Cannula 2.0 28 03/25/19 16:00 Nasal Cannula 2.0 03/25/19 16:00 98.7 86 19 103/50 (67) 99 03/25/19 16:00 28 03/25/19 15:23 82 03/25/19 15:06 83 14 99 Nasal Cannula 2.0 79 14 99 Intake and Output 03/25/19 03/26/19 19:00 07:00 Intake Total 550 ml 110 ml Output Total 950 ml 1100 ml Balance -400 ml -990 ml Intake Oral 550 ml IV Total 110 ml Output Urine Total 950 ml 1100 ml # Bowel Movements 4 Height (Feet): 6 Height (Inches): 3.00 Weight (Pounds): 169 Objective General Appearance: WD/WN, alert Neck: supple Cardiovascular: normal rate Respiratory/Chest: chest wall non-tender, expiratory wheezing Abdomen: normal bowel sounds, non tender, soft, no organomegaly Edema: no edema noted Arm (L), no edema noted Arm (R), no edema noted Leg (L), no edema noted Leg (R), no edema noted Pedal (L), no edema noted Pedal (R), no edema noted Generalized Robert Durham MD Mar 26, 2019 14:11
[2019-03-26] MEDS ORDERED: Tubing IV Secondary IV ONE (15:51)
[2019-03-26] MEDS ORDERED: NS 275ml ONE (15:51)
[2019-03-26 16:00] VITALS: BP 107/56
--- NOTE | 2019-03-26 18:28 | NUR ---
RESPIRATORY NOTE: Received patient on 2L nasal canula sating 93%. Patient has been refusing BIPAP. Dr ordered continuous CO2 monitoring. Patient is awake and alert. will continue to monitor.
--- NOTE | 2019-03-26 19:04 | NUR ---
HAND-OFF: Report given to RN Karuna Stone,patient stable on O2 nasal cannula,possible going home in AM thankful of care
--- NOTE | 2019-03-26 19:05 | NUR ---
NURSE NOTES: received pt from Hilda ROSE., pt is awake, AO x4, resting on the bed. family member is at the bed side. no dysrhythmia reported from the last shift. pt is using 2L NC and O2sat is at 97%. Left FA 22G is intact patent and clean. no dysrhythmia reported from the last shift. pt states no pain at this moment. bed is at the lowest position, alarmed, and locked. call light within reach. will continue with plan of care.
[2019-03-26 20:00] VITALS: BP 117/65
--- NOTE | 2019-03-26 23:10 | NUR ---
RESPIRATORY NOTE: Pt placed on BiPAP for nightly use. Pt on BiPAP 15/8, backup rate 14, 30%. Pt placed on Facial mask, skin intact, no redness/breakdowns noted. Pt is alert/awake, follows commands. B/S yahaira. clear/diminished, nonproductive cough. BiPAP plugged into red outlet, alarms on & audible. Pt also connected to EtCO2 monitor. Pt comfortable, in no apparent distress at this time. Will continue plan of care.
[2019-03-27] VITALS: BP 91/50
[2019-03-27] MEDS: cefTRIAXone 1 GM in D5W 55 ML IVPB SCH (00:23)
[2019-03-27] MEDS: Albuterol ud Inhalation HHN SCH ×3 (03:11→11:15)
[2019-03-27 04:00] VITALS: BP 106/61
--- NOTE | 2019-03-27 07:03 | NUR ---
RESPIRATORY NOTE: Received pt on Bipap with the settings: 15/8-30%FiO2- saturates at 96%. Pt wants to be off Bipap for the morning. Place pt on NC 2L 28% FiO2, saturates 100%. Pt is awake, alert and able to follow commands, no SOB or resp distress noted. Bipap standby and is plugged into the red outlet, family member at bedside, ambu bag is at bedside. RN aware. Will continue to monitor.
--- NOTE | 2019-03-27 07:58 | NUR ---
HAND-OFF: Report given to Xin ROSE, pt is awake and resting on the bed with NC2L.no SOB noted.family member is at the bedside. call light within reach.
[2019-03-27 08:00] VITALS: BP 107/52
[2019-03-27] MEDS: Wixela 250/50 Inhaler - 60 dose INH SCH (08:49)
--- NOTE | 2019-03-27 08:53 | Pulmonology Progress Note ---
Assessment/Plan Assessment/Plan COPD with acute exacerbation chronic respiratory failure hypercapnia, chronic pulmonary hypertension malnutrition debility hypoxemia PLAN dc home resume home meds monitor ABG for acidemia needs external ventilation- trilogy ordered and forms signed therapy as is prednisone at home on chronic oxygen therapy guarded but improved impression, plan, and exam edited and reviewed in detail care discussed with channel turner exacerbation have been resolved. Patient has chronic respiratory failure , hypoxemia and end stage COPD. considered BIPAP but will order Trilogy NIV. Trilogy has AVAPS AE and tidal volume, which will reduced CO2 retention and the work of breathing Subjective Allergies: Coded Allergies: No Known Allergies (Unverified , 08/26/13) Subjective care noted on oxygen forms for trilogy signed care discussed with and patient Objective Last 24 Hour Vital Signs Date Time Temp Pulse Resp B/P (MAP) Pulse Ox O2 Delivery O2 Flow Rate FiO2 03/27/19 08:50 82 20 100 Nasal Cannula 2.0 28 03/27/19 08:50 82 20 100 Nasal Cannula 2.0 28 03/27/19 08:49 81 21 98 Nasal Cannula 2.0 28 03/27/19 08:49 81 21 98 Nasal Cannula 2.0 28 03/27/19 08:00 98.0 76 18 107/52 (70) 96 03/27/19 08:00 96 Nasal Cannula 2.0 28 03/27/19 07:03 77 18 100 Nasal Cannula 2.0 28 76 17 96 03/27/19 05:15 73 17 97 Facial 30 03/27/19 04:00 97.2 70 19 106/61 (76) 97 03/27/19 04:00 Nasal Cannula 2.0 03/27/19 03:52 75 03/27/19 03:21 79 21 100 Bi-Pap 30 03/27/19 03:11 77 16 98 03/27/19 03:09 77 16 98 Facial 30 03/27/19 00:46 74 15 97 Facial 30 03/27/19 00:00 96.8 82 22 91/50 (64) 98 03/27/19 00:00 Nasal Cannula 2.0 03/26/19 23:35 79 03/26/19 23:07 80 15 96 Facial 30 03/26/19 23:06 80 18 99 Bi-Pap 30 03/26/19 22:58 78 20 98 03/26/19 21:26 Nasal Cannula 2.0 28 03/26/19 21:26 Nasal Cannula 2.0 28 03/26/19 21:00 Nasal Cannula 2.0 03/26/19 20:00 96.6 82 20 117/65 (82) 97 03/26/19 19:27 82 20 99 Nasal Cannula 2.0 28 03/26/19 19:17 94 Nasal Cannula 2.0 28 03/26/19 19:17 81 20 94 03/26/19 19:08 85 03/26/19 16:00 96.3 86 20 107/56 (73) 96 03/26/19 16:00 Nasal Cannula 2.0 03/26/19 15:53 81 20 99 Nasal Cannula 2.0 28 84 20 93 03/26/19 15:14 86 03/26/19 12:00 Nasal Cannula 2.0 03/26/19 12:00 96.8 84 20 106/57 (73) 96 03/26/19 12:00 82 03/26/19 11:18 71 20 99 Nasal Cannula 2.0 28 73 20 96 Intake and Output 03/26/19 03/27/19 19:00 07:00 Intake Total 1480 ml 355 ml Output Total 1170 ml 330 ml Balance 310 ml 25 ml Intake Oral 1480 ml 300 ml IV Total 55 ml Output Urine Total 1170 ml 330 ml # Bowel Movements 3 Objective WDWN NAD on oxygen /BIPAP as needed poor breath sounds bilaterally without rhonchi or wheeze [id number] without MRG NABS nontender no HSM no CE clubbing nonfocal alert sob Current Medications Medications (Trade) Dose Ordered Sig/Viji Route PRN Reason Start Time Stop Time Status Last Admin Dose Admin Acetaminophen (Tylenol) 650 mg Q4H PRN ORAL Mild Pain/Temp > 100.5 03/24/19 11:45 04/22/19 11:44 Al Hydroxide/Mg Hydroxide (Mylanta) 30 ml Q4H PRN ORAL Constipation 03/24/19 11:46 04/22/19 11:45 03/25/19 16:56 Albuterol Sulfate (Proventil) 2.5 mg Q4H PRN HHN Shortness of Breath 03/24/19 11:45 03/29/19 11:44 Albuterol Sulfate (Proventil) 2.5 mg Q4HRT HHN 03/24/19 15:00 03/28/19 06:59 03/27/19 06:53 Ceftriaxone Sodium 1 gm/ Dextrose 55 ml @ 110 mls/hr Q24H IVPB 03/25/19 01:00 03/31/19 00:59 03/27/19 00:23 Heparin Sodium (Porcine) (Heparin 5000 units/ml) 5,000 units EVERY 12 HOURS SUBQ 03/24/19 21:00 04/22/19 08:59 03/26/19 20:58 Methylprednisolone Sodium Succinate (Solu-MEDROL) 40 mg DAILY IVP 03/26/19 09:00 04/22/19 08:59 03/26/19 09:40 Pantoprazole (Protonix) 40 mg DAILY ORAL 03/25/19 09:00 04/22/19 08:59 03/26/19 09:40 Salmeterol Xinafoate/ Fluticasone (Advair 250/50 Diskus) 1 puffs EVERY 12 HOURS INH 03/24/19 21:00 04/22/19 08:59 03/27/19 08:49 Tiotropium [place] (Spiriva Inhaler) 1 puff DAILY INH 03/25/19 09:00 04/22/19 08:59 03/27/19 08:48 Kenneth Berrios MD Mar 27, 2019 08:53
[2019-03-27] MEDS: Solu-MEDROL 40mg Inj IVP SCH (09:18)
[2019-03-27] MEDS: Heparin 5000 units/ml inj SUBQ SCH (09:20)
--- NOTE | 2019-03-27 10:44 | NUR ---
NURSE NOTES: received pt in the bed, awake, alert, oriented, vital signs stable, no co pain, no SOB, skin warm and dry to touch, intact, abdomen soft, at bedside, bed in low position, call light within reach.
--- NOTE | 2019-03-27 12:22 | NUR ---
NURSE NOTES: pt discharge home as ordered, condition stable, discharge instruction given.
--- NOTE | 2019-03-27 12:45 | General Progress Note ---
Assessment/Plan Problem List: (1) Respiratory failure, acute ICD Codes: J96.00 - Respiratory failure, acute SNOMED: 34008141 (2) COPD exacerbation (3) Respiratory distress (4) Hypoxia ICD Codes: R09.02 - Hypoxia SNOMED: 197745755 (5) COPD exacerbation ICD Codes: J44.1 - Obstructive chronic bronchitis with exacerbation SNOMED: 194739196 Status: stable, progressing Assessment/Plan: po steroids resp rx dvt/stress ulcer prophylaxis iv abx bipap as needed dc per pulm Subjective ROS Limited/Unobtainable: No Constitutional: Reports: malaise, weakness HEENT: Reports: no symptoms Cardiovascular: Reports: no symptoms Respiratory: Reports: cough, shortness of breath Gastrointestinal/Abdominal: Reports: no symptoms Genitourinary: Reports: no symptoms Neurologic/Psychiatric: Reports: no symptoms Endocrine: Reports: no symptoms Hematologic/Lymphatic: Reports: no symptoms Allergies: Coded Allergies: No Known Allergies (Unverified , 08/26/13) All Systems: reviewed and negative except above Subjective no events. overall feels better. no fever or chills. no sob. decreased cough. wondering if he can go home Objective Last 24 Hour Vital Signs Date Time Temp Pulse Resp B/P (MAP) Pulse Ox O2 Delivery O2 Flow Rate FiO2 03/27/19 12:00 Nasal Cannula 2.0 03/27/19 11:25 81 18 100 Nasal Cannula 2.0 28 03/27/19 11:15 83 18 98 Nasal Cannula 2.0 28 03/27/19 09:25 82 03/27/19 08:50 82 20 100 Nasal Cannula 2.0 28 03/27/19 08:50 82 20 100 Nasal Cannula 2.0 28 03/27/19 08:49 81 21 98 Nasal Cannula 2.0 28 03/27/19 08:49 81 21 98 Nasal Cannula 2.0 28 03/27/19 08:00 98.0 76 18 107/52 (70) 96 03/27/19 08:00 96 Nasal Cannula 2.0 28 03/27/19 08:00 Nasal Cannula 2.0 03/27/19 07:03 77 18 100 Nasal Cannula 2.0 28 76 17 96 03/27/19 05:15 73 17 97 Facial 30 03/27/19 04:00 97.2 70 19 106/61 (76) 97 03/27/19 04:00 Nasal Cannula 2.0 03/27/19 03:52 75 03/27/19 03:21 79 21 100 Bi-Pap 30 03/27/19 03:11 77 16 98 03/27/19 03:09 77 16 98 Facial 30 03/27/19 00:46 74 15 97 Facial 30 03/27/19 00:00 96.8 82 22 91/50 (64) 98 03/27/19 00:00 Nasal Cannula 2.0 03/26/19 23:35 79 03/26/19 23:07 80 15 96 Facial 30 03/26/19 23:06 80 18 99 Bi-Pap 30 03/26/19 22:58 78 20 98 03/26/19 21:26 Nasal Cannula 2.0 28 03/26/19 21:26 Nasal Cannula 2.0 28 03/26/19 21:00 Nasal Cannula 2.0 03/26/19 20:00 96.6 82 20 117/65 (82) 97 03/26/19 19:27 82 20 99 Nasal Cannula 2.0 28 03/26/19 19:17 94 Nasal Cannula 2.0 28 03/26/19 19:17 81 20 94 03/26/19 19:08 85 03/26/19 16:00 96.3 86 20 107/56 (73) 96 03/26/19 16:00 Nasal Cannula 2.0 03/26/19 15:53 81 20 99 Nasal Cannula 2.0 28 84 20 93 03/26/19 15:14 86 Intake and Output 03/26/19 03/27/19 19:00 07:00 Intake Total 1480 ml 355 ml Output Total 1170 ml 330 ml Balance 310 ml 25 ml Intake Oral 1480 ml 300 ml IV Total 55 ml Output Urine Total 1170 ml 330 ml # Bowel Movements 3 Height (Feet): 6 Height (Inches): 3.00 Weight (Pounds): 169 Objective General Appearance: WD/WN, alert Neck: supple Cardiovascular: normal rate Respiratory/Chest: chest wall non-tender, expiratory wheezing Abdomen: normal bowel sounds, non tender, soft, no organomegaly Edema: no edema noted Arm (L), no edema noted Arm (R), no edema noted Leg (L), no edema noted Leg (R), no edema noted Pedal (L), no edema noted Pedal (R), no edema noted Generalized Robert Durham MD Mar 27, 2019 12:45
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
== END 2019-03-27 12:45 | disposition home health service (06) | DRG 190 ==
LOC: EMR 23:19 → 4E 23:43 → EDBEDREQ 03-23 00:37 → 2W 03-24 11:26
PROC: 5A09357 Assistance with Respiratory Ventilation, Less than 24 Consecutive Hours, Continuous Positive Airway Pressure (ICD-10-PCS; principal; 2019-03-22)
DX: J44.1 Chronic obstructive pulmonary disease with (acute) exacerbation (principal); J96.22 Acute and chronic respiratory failure with hypercapnia; J96.21 Acute and chronic respiratory failure with hypoxia; E46 Unspecified protein-calorie malnutrition; I27.20 Pulmonary hypertension, unspecified; I10 Essential (primary) hypertension; R53.81 Other malaise; Z87.891 Personal history of nicotine dependence; K21.9 Gastro-esophageal reflux disease without esophagitis
CPT/HCPCS: 36415; 36600; 71045; 80053; 80307; 81003; 82803; 83880; 84484; 85025; 93005; 94640; 94660; 94664; 96365; 96375; 99285